=== PATIENT | female | born 1945 | race African-American/Black ===

== ENCOUNTER → 2016-09-14 | Outpatient (CLI) | payer OTHER ==
[2016-08-07 03:45] VITALS: BP 198/73
[~2016-09-14] MED LIST: ALPR0.254; ALPR0.254 PO; AMLO5TAB2 PO; AMOX1TAB10 PO; BENA1TAB7 PO; CONTRAST GIVEN MC PRN; DILT120C97 PO; IOHEXOL 240 MG/ML 50ML VIAL. PO ONE; IOHEXOL 300 MG/ML 75 ML VIAL IV ONE; PERP1TAB7; PRED20TA PO; SERT50TA PO; SERT50TA8 PO; SIMV10TA3 PO
[2016-09-14 09:52] LABS: GFR 65.8
--- NOTE | 2016-09-14 11:57 | RAD ---
Indication frequent urinary tract infections. Right-sided flank pain. Axial images through the abdomen and pelvis were obtained. Both IV and oral contrast were administered. Approximately 75 cc of Omnipaque 300 was administered intravenously. Note is made of a previous examination 03/16/2005. An acute finding in either lung base is not seen. There is a suggested small nodule, along the fissure, at the right lung base just above the diaphragm, image 6 series 2 measuring approximately 3 to 4 mm. It is similar to an examination 04/10/2005. The liver and spleen appear unremarkable. The gallbladder appears grossly normal. No pancreatic abnormality is seen. There are no adrenal masses. There is an extrarenal pelvis on the right similar to the previous exam. A renal mass is not seen. A focal mass inflammatory process or acute finding in the abdomen is not seen. In the pelvis no focal mass or inflammatory process is seen. There are some degenerative changes in the lower lumbar spine. IMPRESSION: No acute finding seen in the abdomen or pelvis. PQRS Compliance Statement: One or more of the following individualized dose reduction techniques were utilized for this examination: 1. Automated exposure control 2. Adjustment of the mA and/or kV according to patient size 3. Use of iterative reconstruction technique
== END | disposition home or self-care (01) ==
LOC: CT 08:33
PROVIDERS: ATTEND Internal Medicine
DX: R10.9 Unspecified abdominal pain (principal); I10 Essential (primary) hypertension; N39.0 Urinary tract infection, site not specified
CPT/HCPCS: 36415; 74177; 82565; 84520; Q9966; Q9967

== ENCOUNTER 2016-09-24 10:11 | Day surgery (SDC) | payer OTHER ==
[~2016-09-24 10:11] MED LIST changes: -CONTRAST GIVEN MC PRN; +FENTANYL PF 100 MCG/2 ML VIAL. IV PRN; +HYDROMORPHONE 2 MG/ML VIAL. IV PRN; -IOHEXOL 240 MG/ML 50ML VIAL. PO ONE; -IOHEXOL 300 MG/ML 75 ML VIAL IV ONE; +IV RINGERS,LACTATED 1000ML 1,000 ML IV SCH; +LIDOCAINE 1% 1 ML SYRINGE. ID PRN; +METO-269 PO; +MORPHINE SULFATE 2 MG/ML DISP.SYRIN. IV PRN; +ONDANSETRON PF 4 MG/2 ML VIAL. IV PRN; +PERP1TAB7 PO; +PROCHLORPERAZINE 10 MG/2 ML VIAL. IV PRN; +TRIA1TAB3 PO
[2016-09-24] MEDS ORDERED: BUPIVAC MPF-EPI 0.5%-1:200000 30 ML VIAL. ONE (10:40)
[2016-09-24] MEDS ORDERED: DEXAMETHASONE SOD PHOS 20 MG/5 ML VIAL. ONE (11:14)
[2016-09-24] MEDS ORDERED: LIDOCAINE 2% PF Vial for OR 5 ML VIAL. ONE (11:14)
[2016-09-24] MEDS ORDERED: PROPOFOL 20 ML IV ONE ×2 (11:14→12:04)
[2016-09-24] MEDS ORDERED: SEVOFLURANE 31 TO 60 MINUTES. IH ONE ×2 (11:14→12:12)
[2016-09-24] MEDS ORDERED: ONDANSETRON PF 4 MG/2 ML VIAL. ONE (11:14)
[2016-09-24] MEDS ORDERED: PHENYLEPHRINE in 0.9% NACL PF 1 MG/10 ML DISP.SYRIN. IV ONE (12:04)
[2016-09-24] MEDS ORDERED: HYDROCODONE/APAP 5/325MG TABLET. PO ONE ×2 (12:30→13:15)
[2016-09-24] MEDS ORDERED: HYDR-971 PO (13:16)
--- NOTE | 2016-09-24 13:23 | PDOC ---
BRIEF OPERATIVE NOTE Pre-Op Diagnosis umb mass excision of mass gen ivf 300 ebl 5 bhanu well to rr stable TRISTIAN MAY MD Sep 24, 2016 13:22
[2016-09-24 14:43] VITALS: BP 134/72
--- NOTE | 2016-09-24 19:11 | OP ---
DATE OF SURGERY: 09/24/2016 PREOPERATIVE DIAGNOSIS: Umbilical mass. POSTOPERATIVE DIAGNOSIS: A 3.5 cm umbilical mass. PROCEDURE: Excision of 3.5 cm umbilical mass. SURGEON: Tristian May MD ANESTHESIA: General. ESTIMATED BLOOD LOSS: 5. IV FLUIDS: 300. INDICATIONS: The patient is a 71-year-old female who has got a black umbilical mass that she is here for excision. PROCEDURE IN DETAIL: After informed consent was obtained, the patient was taken to the operating room and placed in the supine position. After adequate induction of general anesthesia, she was prepped and draped in usual sterile fashion. The mass was elevated. It was attached widely at the base of the umbilicus and therefore, an infraumbilical skin incision was made similar to the approach used for an umbilical hernia repair. The subcutaneous tissues divided with cautery. The umbilical stalk was encircled with cautery. The dissection was then such that the umbilicus was from the fascia. In doing so, this mass was filled with foul smelling dark, thick richardson to black drainage and the bottom of the mass had completely encompassed the base of the umbilicus and the base of the umbilicus had to be excised in order to excise the mass. The defect in the umbilicus was then closed with 4-0 Monocryl at the skin level. At the fascia where the umbilical stalk had attached, there was a 2-4 mm opening in the fascia. This opening was closed with 2 interrupted 0 Prolene sutures. The dermis of the umbilicus was then tacked back to the fascia with 3-0 Vicryl and the skin was closed with 4-0 Monocryl in subcuticular fashion. Sterile dressings were placed, local had been injected. She tolerated the procedure well. There were no apparent complications. She was then transferred in stable condition to the recovery room. TRISTIAN MAY MD DR: SALUD/milka JOB#: [id number] / [id number] GREY Eid MD, FADI MD MTDD
--- NOTE | 2016-09-26 15:10 | PATHOLOGY ---
PATHOLOGY REPORT * * * * * * * * FINAL DIAGNOSIS: Skin, umbilical mass: - Benign squamous keratosis with marked hyperkeratosis and cutaneous horn. COMMENT: There is no evidence of malignancy. (TRINIM:; d/t: 09/25/16) REPORT ELECTRONICALLY SIGNED BY: Sukhjinder Whalen M.D. DATE/TIME: 09/26/2016 15:09 * * * * * * * * GROSS PATHOLOGY: The specimen is received in formalin, labeled "Valentin Davis and umbilical mass." Received is a 2.2 x 0.7 x 0.9 cm irregular excision of skin.The epidermal surface is caballero-brown, wrinkled, and granular. Sectioning reveals a white-caballero and fibrous cut surface. Also received is a 3.3 x 1.5 x 1.4 cm caballero-brown, irregular, and friable soft tissue. Sectioning reveals a dark brown and firm cut surface. Endoscope Technician sections are submitted in cassette A1. (TTL; 09/24/2016) After initial microscopic evaluation, additional sections are submitted in cassettes A2-A3. (TTL; 09/25/2016) INITIAL CPT CODE(S): A; 64425 Professional services performed [place] [address] Technical services performed by [facility] at [address] [place] [address] [address]. SPECIMEN(S) RECEIVED: A.Umbilical mass CLINICAL HISTORY: Umbilical mass PATIENT: VALENTIN DAVIS /AGE: 1 1945 (Age: 71) PATIENT #: [id number] ALT CASE #: SPECIMEN COLLECTION DATE: 09/24/2016 SPECIMEN RECEIVED DATE: 09/24/2016 [facility] - [address] [place] [address] - PHONE: [phone] * * * END OF REPORT * * *
== END 2016-09-24 14:46 | disposition home or self-care (01) ==
LOC: SURG 10:11
PROVIDERS: ATTEND Surgery
DX: L57.0 Actinic keratosis (principal); E78.00 Pure hypercholesterolemia, unspecified; I10 Essential (primary) hypertension; J45.909 Unspecified asthma, uncomplicated; E66.9 Obesity, unspecified; Z90.710 Acquired absence of both cervix and uterus
CPT/HCPCS: 11404; 12032; A4215; J1100; J1956; J2370; J2405; J2704; J3490; 88305

== ENCOUNTER → 2016-10-08 | Outpatient (CLI) | payer OTHER ==
[2016-09-24 14:43] VITALS: BP 134/72
[~2016-10-08] MED LIST changes: -FENTANYL PF 100 MCG/2 ML VIAL. IV PRN; +HYDR-971 PO; -HYDROMORPHONE 2 MG/ML VIAL. IV PRN; -IV RINGERS,LACTATED 1000ML 1,000 ML IV SCH; -LIDOCAINE 1% 1 ML SYRINGE. ID PRN; -MORPHINE SULFATE 2 MG/ML DISP.SYRIN. IV PRN; -ONDANSETRON PF 4 MG/2 ML VIAL. IV PRN; -PROCHLORPERAZINE 10 MG/2 ML VIAL. IV PRN
--- NOTE | 2016-10-08 08:56 | RAD ---
INDICATION: Abdominal pain. COMPARISON: 09/04/2016 TECHNIQUE: Grayscale and color ultrasound images obtained through the abdomen. FINDINGS: Aorta/IVC: Partially visualized without gross aneurysm. Pancreas: Visualized portions unremarkable. Liver: Echotexture within normal limits. Gallbladder: 6 x 4 mm nodular density along wall and additional 5 mm density along wall. Common Bile Duct: Not dilated. Right Kidney: No hydronephrosis. Left Kidney: No hydronephrosis. Spleen: Unremarkable. IMPRESSION: There are couple of nodular densities seen within the gallbladder measuring up to 6 mm. These could be secondary to polyps or adherent stone. Would obtain a follow-up ultrasound in 6-12 months to ensure no growth. No bile duct dilation or hydronephrosis
== END | disposition home or self-care (01) ==
LOC: US 07:45
PROVIDERS: ATTEND Internal Medicine
DX: R10.9 Unspecified abdominal pain (principal)
CPT/HCPCS: 76700

== ENCOUNTER 2016-12-05 23:03 | Inpatient (IN) | payer OTHER ==
[~2016-12-05] VITALS: Ht 154.9 cm; Wt 67.1 kg
[2016-12-05] MEDS ORDERED: methylPREDNISolone SOD SUCC PF 125 MG/2 ML VIAL. IV ONE (23:30)
[2016-12-05] MEDS ORDERED: FAMOTIDINE 20 MG/2 ML VIAL IVP ONE (23:30)
[2016-12-05] MEDS ORDERED: DIPHENHYDRAMINE 50 MG/ML VIAL. IV ONE (23:30)
[2016-12-05] MEDS ORDERED: IV NORMAL SALINE 1000ML BAG 1,000 ML IV SCH (23:30)
[2016-12-05 23:31] LABS: BASO # 0.1 x10^3/uL (0.0-0.2); BASO % 1 % (0-3); EOS % 4 % (0-3); HEMOGLOBIN 12.4 g/dL (12.0-15.5); LYMPH # 2.6 x10^3/uL (1.0-4.8); LYMPH % 28 % (24-48); MEAN CORPUSCULAR HEMOGLOBIN 29 pg (25-35); MEAN CORPUSCULAR HGB CONC 33 g/dL (31-37); MEAN CORPUSCULAR VOLUME 90 fL (79-100); MONO % 10 % (0-9); NEUT % 58 % (31-73); PLATELET COUNT 207 x10^3/uL (140-400); RED BLOOD COUNT 4.24 x10^6/uL (3.50-5.40); WHITE BLOOD COUNT 9.3 x10^3/uL (4.0-11.0)
--- NOTE | 2016-12-05 23:36 | PHYS DOC ---
Past Medical History Past Medical History: High Cholesterol Additional Past Medical Histor: HTN Insomnia palpations Past Surgical History: Hysterectomy Alcohol Use: None Drug Use: None Adult General Chief Complaint Chief Complaint: ALLERGIC REACTION HPI HPI Patient is a 71 year old female who presents with complaint of tongue swelling that started earlier this evening. Patient states symptoms came on suddenly. Patient is having swelling of the tongue and also is feeling tightness in her throat. Patient denies difficulty breathing or shortness of breath currently. Patient has had history of angioedema with unknown cause requiring hospitalization in March 2016. Patient states that her symptoms resolved with IV medications. Patient is not experiencing any fever or chest pain currently. Patient contacted her primary physician's office and was told to come to the emergency department for immediate evaluation. Review of Systems Review of Systems Constitutional: Denies fever or chills [] Eyes: Denies change in visual acuity, redness, or eye pain [] HENT: Tongue swelling, throat tightness [] Respiratory: Denies cough or shortness of breath [] Cardiovascular: Denies chest pain [] GI: Denies abdominal pain, nausea, vomiting, bloody stools or diarrhea [] : Denies dysuria or hematuria [] Musculoskeletal: Denies back pain or joint pain [] Integument: Denies rash or skin lesions [] Neurologic: Denies headache, focal weakness or sensory changes [] Current Medications Current Medications Current Medications Medications (Trade) Dose Ordered Sig/Jeyson Start Time Stop Time Status Last Admin Dose Admin Diphenhydramine HCl (Benadryl) 25 mg 1X ONCE 12/05/16 23:30 12/05/16 23:31 Famotidine 20 mg 20 mg 1X ONCE 12/05/16 23:30 12/05/16 23:31 Methylprednisolone Sodium Succinate (Solu-Medrol 125mg Vial) 125 mg 1X ONCE 12/05/16 23:30 12/05/16 23:31 Sodium Chloride (Iv Sodium Chloride 0.9% 1000ml Bag) 1,000 ml @ 1,000 mls/hr Q1H 12/05/16 23:30 12/06/16 00:29 Allergies Allergies Allergies Coded Allergies Type Severity Reaction Last Updated Verified benazepril Allergy Severe ANGIOEDEMA 09/24/16 Yes Penicillins Allergy Intermediate 09/24/16 Yes Physical Exam Physical Exam Constitutional: Alert, afebrile, no acute distress. [] HENT: Normocephalic, atraumatic, bilateral external ears normal, oropharynx moist, moderate tongue swelling present, no oral exudates, nose normal. [] Eyes: PERRLA, EOMI, conjunctiva normal, no discharge. [] Neck: Normal range of motion, no tenderness, supple, no stridor. [] Cardiovascular:Heart rate regular rhythm, no murmur [] Lungs & Thorax: Bilateral breath sounds clear to auscultation [] Abdomen: Bowel sounds normal, soft, no tenderness, no masses, no pulsatile masses. [] Skin: Warm, dry, no erythema, no rash. [] Back: No tenderness, no CVA tenderness. [] Extremities: No tenderness, no cyanosis, no clubbing, ROM intact, no edema. [] Neurologic: Alert and oriented X 3, normal motor function, normal sensory function, no focal deficits noted. [] Current Patient Data Vital Signs Vital Signs Date Time Temp Pulse Resp B/P Pulse Ox O2 Delivery O2 Flow Rate FiO2 12/05/16 23:06 98.7 91 16 134/74 97 Room Air 98.7 EKG EKG Interpreted by me: Heart rate 85, sinus rhythm, normal intervals, normal axis, no acute ST/T-wave abnormalities present [] Radiology/Procedures Radiology/Procedures Not performed [] Course & Med Decision Making Course & Med Decision Making Pertinent Labs and Imaging studies reviewed. (See chart for details) Patient started on IV Solu-Medrol, Pepcid, and Benadryl. Due to intraoral angioedema, the patient will require admission to the hospital under ICU care to ensure close monitoring of the patient's condition and rapid response any deterioration of her condition. I spoke with Dr. Campbell who accepted care patient in hospital. Dragon Disclaimer Dragon Disclaimer This electronic medical record was generated, in whole or in part, using a voice recognition dictation system. Departure Departure Impression: Primary Impression: Angioedema Disposition: ADMITTED INPATIENT Admitting Physician: Grey Campbell Condition: GUARDED Referrals: GREY CAMPBELL MD (PCP) Problem Qualifiers Primary Impression: Angioedema Encounter type: initial encounter Qualified Code: T78.3XXA - Angioneurotic edema, initial encounter NIK DAVIS MD Dec 05, 2016 23:36
[2016-12-05 23:40] LABS: CALCIUM 9.4 mg/dL (8.5-10.1); GFR 65.8; POTASSIUM 3.9 mmol/L (3.5-5.1)
[2016-12-05 23:46] LABS: ALBUMIN 3.8 g/dL (3.4-5.0); ALBUMIN/GLOBULIN RATIO 0.9 (1.0-1.7); TOTAL BILIRUBIN 0.2 mg/dL (0.2-1.0); TOTAL PROTEIN 8.1 g/dL (6.4-8.2)
[2016-12-06] VITALS (12 sets, daily range): BP systolic 91–144; BP diastolic 43–76
[2016-12-06] MEDS ORDERED: ONDANSETRON PF 4 MG/2 ML VIAL. IV PRN
[2016-12-06] MEDS ORDERED: DIPHENHYDRAMINE 50 MG/ML VIAL. IVP PRN
[2016-12-06] MEDS: IV NORMAL SALINE 1000ML BAG 1,000 ML IV SCH ×2 (01:59→09:48)
--- NOTE | 2016-12-06 05:57 | EKG ---
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
[2016-12-06] MEDS: methylPREDNISolone SOD SUCC PF 40 MG/ML VIAL. IV SCH ×2 (06:00→13:01)
[2016-12-06 07:09] LABS: CALCIUM 9.3 mg/dL (8.5-10.1); GFR 65.8
[2016-12-06] MEDS ORDERED: FAMOTIDINE 20 MG/2 ML VIAL IVP SCH (09:00)
--- NOTE | 2016-12-06 10:35 | PDOC ---
OBJECTIVE Vital Signs Vital Signs Date Time Temp Pulse Resp B/P Pulse Ox O2 Delivery O2 Flow Rate FiO2 12/06/16 10:17 85 16 117/62 97 Room Air 12/06/16 06:00 81 22 118/64 98 Room Air 12/06/16 05:00 77 18 95/43 96 Room Air 12/06/16 04:03 Room Air 12/06/16 04:00 98.0 68 16 109/50 95 Room Air 98.0 12/06/16 03:00 68 14 103/47 96 Room Air 12/06/16 02:17 Room Air 12/06/16 02:00 64 12 104/53 94 Room Air 12/06/16 01:50 74 15 131/76 98 Room Air 12/06/16 01:35 98.0 76 16 124/75 98 Room Air 98.0 12/06/16 01:04 77 131/80 98 Room Air 12/06/16 00:34 79 133/63 98 Room Air 12/06/16 00:04 83 143/67 98 Room Air 12/05/16 23:34 89 132/60 96 Room Air 12/05/16 23:06 98.7 91 16 134/74 97 Room Air 98.7 I & O Intake and Output 12/06/16 06:59 Intake Total 1000 ml Output Total 500 ml Balance 500 ml Intake IV Total 1000 ml Output Urine Total 500 ml ASSESSMENT/PLAN Assessment/Plan [id number] H&P dictated Problems: COMMENT Lab Laboratory Tests Test 12/05/16 23:20 12/06/16 06:25 White Blood Count 9.3x10^3/uL (4.0-11.0) Red Blood Count 4.24x10^6/uL (3.50-5.40) Hemoglobin 12.4g/dL (12.0-15.5) Hematocrit 38.0% (36.0-47.0) Mean Corpuscular Volume 90fL (79-100) Mean Corpuscular Hemoglobin 29pg (25-35) Mean Corpuscular Hemoglobin Concent 33g/dL (31-37) Red Cell Distribution Width 14.0% (11.5-14.5) Platelet Count 207x10^3/uL (140-400) Neutrophils (%) (Auto) 58% (31-73) Lymphocytes (%) (Auto) 28% (24-48) Monocytes (%) (Auto) 10% (0-9) Eosinophils (%) (Auto) 4% (0-3) Basophils (%) (Auto) 1% (0-3) Neutrophils # (Auto) 5.4x10^3uL (1.8-7.7) Lymphocytes # (Auto) 2.6x10^3/uL (1.0-4.8) Monocytes # (Auto) 0.9x10^3/uL (0.0-1.1) Eosinophils # (Auto) 0.4x10^3/uL (0.0-0.7) Basophils # (Auto) 0.1x10^3/uL (0.0-0.2) Sodium Level 140mmol/L (136-145) 140mmol/L (136-145) Potassium Level 3.9mmol/L (3.5-5.1) 4.0mmol/L (3.5-5.1) Chloride Level 102mmol/L (98-107) 104mmol/L (98-107) Carbon Dioxide Level 30mmol/L (21-32) 26mmol/L (21-32) Anion Gap 8 (6-14) 10 (6-14) Blood Urea Nitrogen 18mg/dL (7-20) 15mg/dL (7-20) Creatinine 1.0mg/dL (0.6-1.0) 1.0mg/dL (0.6-1.0) Estimated GFR (Cockcroft-Gault) 65.8 65.8 BUN/Creatinine Ratio 18 (6-20) Glucose Level 111mg/dL (70-99) 147mg/dL (70-99) Calcium Level 9.4mg/dL (8.5-10.1) 9.3mg/dL (8.5-10.1) Total Bilirubin 0.2mg/dL (0.2-1.0) Aspartate Amino Transf (AST/SGOT) 24U/L (15-37) Alanine Aminotransferase (ALT/SGPT) 24U/L (14-59) Alkaline Phosphatase 107U/L (46-116) Total Protein 8.1g/dL (6.4-8.2) Albumin 3.8g/dL (3.4-5.0) Albumin/Globulin Ratio 0.9 (1.0-1.7) GREY CAMPBELL MD Dec 06, 2016 10:35
[2016-12-06] MEDS ORDERED: METH4TAB2 PO (14:04)
[2016-12-06] MEDS ORDERED: FAMO-63 PO (14:04)
[2016-12-06] MEDS ORDERED: LORA10TA68 PO (14:04)
--- NOTE | 2016-12-06 14:27 | PDOC3 ---
Discharge Summary* Date of Admission: Dec 05, 2016 Date of Discharge: Dec 06, 2016 Admitting Diagnosis Problems Medical Problems: (1) Angioedema Status: Acute Final Diagnosis 1-Angioedema 2-HTN Problems Medical Problems: (1) Angioedema Status: Acute Procedures oximetry and cardiac monitoring Brief Hospital Course Ms. Davis is a 71 old Female who presented with angioedema, recurrent, treated with steroid, H1 and H2 blockers, symptoms resolved and improved, Disposition/Orders: D/C to Home CONDITION AT DISCHARGE: Improved, Stable Diet: Cardiac Scheduled Famotidine (Pepcid) 20 MG PO BID Loratadine (Claritin) 1 TAB PO DAILY Methylprednisolone (Medrol) 1 PKG PO UD Metoprolol Succinate (Toprol Xl) 1 TAB PO DAILY (Reported) Perphenazine/Amitriptyline Hcl (Perphen-Amitrip 4 Mg-25 Mg Tab) 1 EACH PO QHS ( Reported) Discontinued Medications Triamterene/Hydrochlorothiazid (Triamterene-Hctz 37.5-25 Mg Tb) 1 TAB PO DAILY ( Reported) FOLLOW UP APPOINTMENT: to have C1 esterase inhibitor out pt if not done before f/u office 1 week Time Spent Total time spent with patient [] minutes for coordination of care, counseling, and education. GREY CAMPBELL MD Dec 06, 2016 14:27
--- NOTE | 2016-12-06 15:17 | HP ---
ADMIT DATE: 12/05/2016 LOCATION: Room# ICU 112. HISTORY OF PRESENT ILLNESS: The patient is a 71-year-old lady, who is known to have a previous history of angioedema, initially was thought to be due to JUDI inhibitors. She has not been on JUDI inhibitors for a long time, presented to the Emergency Room with a sudden onset of increased swelling in the tongue and that was getting worse progressively till the time she presented to the Emergency Room. She has a swelling in the tongue and feeling tightness in her throat. She denies difficulty breathing or shortness of breath. She denies rash. Her last hospitalization for angioedema was in 03/2016. PAST MEDICAL HISTORY: Significant for hypertension, hyperlipidemia, asthma, appendectomy, obesity, ovarian cancer, hysterectomy, and angioedema. FAMILY HISTORY: Positive for colon cancer and diabetes. REVIEW OF SYSTEMS: CONSTITUTIONAL: Denies fever, chills, or weight loss. EYES: Denies visual changes. HEENT: She does have some swelling and tightness in the throat. RESPIRATORY: Denies cough. Denies shortness of breath or wheezing. CARDIOVASCULAR: Denies chest pain. GASTROINTESTINAL: Denies abdominal pain, nausea, vomiting, diarrhea, or constipation. GENITOURINARY: She does have stress incontinence, but denies dysuria or hematuria. MUSCULOSKELETAL: She does have mild baseline osteoarthritis. NEUROLOGIC: She denies headache or focal weakness and/or numbness. PHYSICAL EXAMINATION: GENERAL: She is alert and oriented, pleasant. HEENT: Tympanic membranes clear. Pharynx clear. Her tongue is swollen and increased in size, but her tonsils are not enlarged and her upper airway is not closed up. Eyes: Pupils reactive to light and accommodation. NECK: Supple. HEART: Regular rate and rhythm. LUNGS: Fairly clear to auscultation. No wheezes. ABDOMEN: Soft, nontender, no organomegaly, no masses, no bruits, no ascites. EXTREMITIES: No edema, clubbing, or cyanosis. NEUROLOGICAL: Alert and oriented. Does not have any neurological deficits. The patient was evaluated in the Emergency Room and was diagnosed with recurrent angioedema. IMPRESSION: 1. Angioedema. The patient is admitted to ICU, started on steroids, antihistamine, H1 blockers. She will be monitored. 2. Hypertension. GREY CAMPBELL MD DR: Clive JOB#: [id number] / [id number]
== END 2016-12-06 14:44 | disposition home or self-care (01) | DRG 916 ==
LOC: ER 23:03 → 1 WEST ICU 23:16
PROVIDERS: ADMIT Internal Medicine; ATTEND Internal Medicine
DX: T78.3XXA Angioneurotic edema, initial encounter (principal); E78.00 Pure hypercholesterolemia, unspecified; E78.5 Hyperlipidemia, unspecified; I10 Essential (primary) hypertension; J45.909 Unspecified asthma, uncomplicated; Z80.0 Family history of malignant neoplasm of digestive organs; Z83.3 Family history of diabetes mellitus; Z85.43 Personal history of malignant neoplasm of ovary; Z90.710 Acquired absence of both cervix and uterus
CPT/HCPCS: 36415; 80048; 80053; 85027; 87641; 93005; 96361; 96374; 96375; J1200; J2920; J2930; J7030; S0028; 99285-25

== ENCOUNTER 2017-02-02 16:00 | Observation (INO) | payer OTHER ==
[~2017-02-02] VITALS: Ht 154.9 cm; Wt 68.7 kg
[~2017-02-02 16:00] MED LIST changes: +DILT120C80 PO; -DILT120C97 PO; +FAMO-63 PO; +LORA10TA68 PO; +METH4TAB2 PO
[2017-02-02 17:04] LABS: BASO % 1 % (0-3); EOS % 4 % (0-3); HEMATOCRIT 36.4 % (36.0-47.0); HEMOGLOBIN 11.9 g/dL (12.0-15.5); LYMPH # 2.7 x10^3/uL (1.0-4.8); LYMPH % 32 % (24-48); MEAN CORPUSCULAR HEMOGLOBIN 29 pg (25-35); MEAN CORPUSCULAR HGB CONC 33 g/dL (31-37); MEAN CORPUSCULAR VOLUME 90 fL (79-100); MONO % 8 % (0-9); NEUT % 55 % (31-73); PLATELET COUNT 214 x10^3/uL (140-400); RED BLOOD COUNT 4.05 x10^6/uL (3.50-5.40); WHITE BLOOD COUNT 8.4 x10^3/uL (4.0-11.0)
[2017-02-02 17:12] LABS: CALCIUM 9.9 mg/dL (8.5-10.1); CREATININE 1.1 mg/dL (0.6-1.0); GFR 58.9; POTASSIUM 3.3 mmol/L (3.5-5.1)
[2017-02-02 17:13] LABS: MAGNESIUM 1.7 mg/dL (1.8-2.4)
[2017-02-02] MEDS ORDERED: ASPIRIN 325 MG TABLET PO ONE (17:15)
[2017-02-02] MEDS ORDERED: ONDANSETRON PF 4 MG/2 ML VIAL. IV ONE (17:15)
--- NOTE | 2017-02-02 17:54 | PHYS DOC ---
Past Medical History Past Medical History: High Cholesterol, Hypertension Additional Past Medical Histor: Insomnia, palpations Past Surgical History: Hysterectomy Alcohol Use: None Drug Use: None Adult General Chief Complaint Chief Complaint: Palpitations HPI HPI Patient is a 71 year old female who presents for left sided chest pain radiating to left shoulder and jaw associated with fatigue and nausea and palpitations. Started around 1300 today at rest and has been constant until arrival here. Currently has nausea and fatigue without the other symptoms. She denies cough, dyspnea, fever or chills, vomiting, abdominal pain, diarrhea, dysuria, back pain, numbness, tingling, weakness. Review of Systems Review of Systems Constitutional: Denies fever or chills [] Eyes: Denies change in visual acuity, redness, or eye pain [] HENT: Denies nasal congestion or sore throat [] Respiratory: Denies cough or shortness of breath [] Cardiovascular: No additional information not addressed in HPI [] GI: Denies abdominal pain, vomiting, bloody stools or diarrhea [] : Denies dysuria or hematuria [] Musculoskeletal: Denies back pain or joint pain [] Integument: Denies rash or skin lesions [] Neurologic: Denies headache, focal weakness or sensory changes [] Endocrine: Denies polyuria or polydipsia [] Current Medications Current Medications Current Medications Medications (Trade) Dose Ordered Sig/Jeyson Start Time Stop Time Status Last Admin Dose Admin Aspirin (Edilberto Aspirin) 325 mg 1X ONCE 02/02/17 17:15 02/02/17 17:16 DC 02/02/17 17:14 325 MG Ondansetron HCl (Zofran) 4 mg 1X ONCE 02/02/17 17:15 02/02/17 17:16 DC 02/02/17 17:14 4 MG Allergies Allergies Allergies Coded Allergies Type Severity Reaction Last Updated Verified benazepril Allergy Severe ANGIOEDEMA 09/24/16 Yes Penicillins Allergy Intermediate 09/24/16 Yes Physical Exam Physical Exam Constitutional: Well developed, well nourished, no acute distress, non-toxic appearance. [] HENT: Normocephalic, atraumatic, bilateral external ears normal, oropharynx moist, nose normal. [] Eyes: PERRLA, EOMI. [] Neck: Normal range of motion, supple. [] Cardiovascular:Heart rate regular rhythm [] Lungs & Thorax: Bilateral breath sounds clear to auscultation [] Abdomen: Bowel sounds normal, soft, no tenderness. [] Skin: Warm, dry, no erythema, no rash. [] Back: Normal ROM. [] Extremities: No tenderness, ROM intact, no edema. [] Neurologic: Alert and oriented X 3, normal motor function, normal sensory function, no focal deficits noted. [] Psychologic: Affect normal, judgement normal, mood normal. [] Current Patient Data Vital Signs Vital Signs Date Time Temp Pulse Resp B/P (MAP) Pulse Ox O2 Delivery O2 Flow Rate FiO2 02/02/17 16:20 98.6 110 23 169/79 (109) 95 Room Air 98.6 Lab Values Laboratory Tests Test 02/02/17 16:36 White Blood Count 8.4 x10^3/uL (4.0-11.0) Red Blood Count 4.05 x10^6/uL (3.50-5.40) Hemoglobin 11.9 g/dL (12.0-15.5) L Hematocrit 36.4 % (36.0-47.0) Mean Corpuscular Volume 90 fL (79-100) Mean Corpuscular Hemoglobin 29 pg (25-35) Mean Corpuscular Hemoglobin Concent 33 g/dL (31-37) Red Cell Distribution Width 14.0 % (11.5-14.5) Platelet Count 214 x10^3/uL (140-400) Neutrophils (%) (Auto) 55 % (31-73) Lymphocytes (%) (Auto) 32 % (24-48) Monocytes (%) (Auto) 8 % (0-9) Eosinophils (%) (Auto) 4 % (0-3) H Basophils (%) (Auto) 1 % (0-3) Neutrophils # (Auto) 4.6 x10^3uL (1.8-7.7) Lymphocytes # (Auto) 2.7 x10^3/uL (1.0-4.8) Monocytes # (Auto) 0.7 x10^3/uL (0.0-1.1) Eosinophils # (Auto) 0.3 x10^3/uL (0.0-0.7) Basophils # (Auto) 0.0 x10^3/uL (0.0-0.2) Sodium Level 139 mmol/L (136-145) Potassium Level 3.3 mmol/L (3.5-5.1) L Chloride Level 101 mmol/L (98-107) Carbon Dioxide Level 30 mmol/L (21-32) Anion Gap 8 (6-14) Blood Urea Nitrogen 15 mg/dL (7-20) Creatinine 1.1 mg/dL (0.6-1.0) H Estimated GFR (Cockcroft-Gault) 58.9 Glucose Level 141 mg/dL (70-99) H Calcium Level 9.9 mg/dL (8.5-10.1) Magnesium Level 1.7 mg/dL (1.8-2.4) L Troponin I Quantitative < 0.017 ng/mL (0.000-0.055) JG-Grj-U-Type Natriuretic Peptide 29 pg/mL (0-124) Laboratory Tests 02/02/17 16:36 Laboratory Tests 02/02/17 16:36 EKG EKG EKG as interpreted by me as sinus tachycardia, rate 111, no ST-T changes, CA 92 , QTC 468, no delta wave, no ectopy Radiology/Procedures Radiology/Procedures Chest xray as interpreted by me with no acute cardiopulmonary disease process Course & Med Decision Making Course & Med Decision Making Pertinent Labs and Imaging studies reviewed. (See chart for details) Workup is unremarkable. HEART score is 5. Will admit for ACS rule out. She remains without chest pain. Discussed case with Dr. Hernandez, agronomy technician for Dr. Campbell, who will admit. Cardiology consult placed. Dragon Disclaimer Dragon Disclaimer This electronic medical record was generated, in whole or in part, using a voice recognition dictation system. Departure Departure Impression: Primary Impression: Chest pain Disposition: ADMITTED INPATIENT Condition: STABLE Referrals: GREY CAMPBELL MD (PCP) Problem Qualifiers Primary Impression: Chest pain Chest pain type: unspecified Qualified Codes: R07.9 - Chest pain, unspecified Gisell HART MD Feb 02, 2017 17:54
[2017-02-02] MEDS ORDERED: ACETAMINOPHEN 325 MG TABLET. PO PRN (18:00)
[2017-02-02] MEDS ORDERED: MAGNESIUM SULFATE 1GM 100 ML IV ONE (18:00)
[2017-02-02] MEDS ORDERED: fentaNYL PF VIAL 100 MCG/2 ML VIAL IV PRN (18:00)
[2017-02-02] MEDS ORDERED: ONDANSETRON PF 4 MG/2 ML VIAL. IV PRN (18:00)
[2017-02-02] MEDS ORDERED: NITROGLYCERIN SUBLINGUAL 0.4 MG BOTTLE OF 25. SL PRN (18:00)
--- NOTE | 2017-02-02 18:23 | ACF ---
Admission Forms Criteria CHEST PAIN Clinical Indications for Admission to Inpatient Care (Place 'X' for any and all applicable criteria): Admission is indicated for chest pain and ANY ONE of the following(1)(2)(3)(4)(5 ): [X]I. Angina with acute coronary syndrome (Also use Myocardial Infarction or Angina guideline) [ ]II. Hemodynamic instability [ ]III. Angina needing acute intervention as indicated by ALL of the following( 11)(12): [ ]a) Unstable angina is present as indicated by angina that is ANY ONE of the following: [ ]i) New onset [ ]ii) Nocturnal [ ]iii) Prolonged at rest [ ]iv) Progressive [ ]b) Angina warrants acute intervention as indicated by ANY ONE of the following: [ ]i) Recurrent angina (e.g, not responding as previously to treatment) [ ]ii) Angina at rest or with low-level activities despite initial medical therapy [ ]iii) New or presumably new ST-segment depression on ECG [ ]iv) Signs or symptoms of heart failure (eg, dyspnea, pulmonary edema) [ ]v) New or worsening mitral regurgitation [ ]vi) Hemodynamic instability [ ]vii) Dangerous arrhythmia (eg, sustained ventricular tachycardia) [ ]viii) History of percutaneous coronary intervention within 6 months [ ]ix) History of coronary artery bypass graft surgery [ ]x) SAUL risk score of 2 or greater[A] [ ]xi) History of Diabetes(14) [ ]xii) High-risk cardiac ischemia findings on noninvasive testing (e.g, echocardiogram, treadmill testing, nuclear scan) [ ]xiii) Chronic renal insufficiency (ie, estimated GFR less than 60 mL/min/1.732m) [ ]xiv) Left ventricular ejection fraction less than 40% [ ]IV. Evidence of ID (eg, cardiac biomarkers positive, ST-segment elevation on ECG) also use Myocardial Infarction Criteria Form. [ ]V. Pulmonary edema [ ]. Respiratory distress [ ]VII. Chest pain indicative of serious diagnosis other than coronary artery disease (eg, aortic dissection) [ ]VIII. Contraindications and/or Inappropriate clinical situations for Observational Care in patients with Chest Pain, when ANY ONE of the following is required: [ ]a) Patient with risk factor for pulmonary embolism, acute coronary syndrome and myocardial infarction (18) [ ]b) Patient with Pulmonary embolism require an average LOS of 4.3 days, therefore emergency department observation management is inappropriate 18,23 [ ]c) Painful condition/s in the elderly, have the highest rate of recidivism after emergency department observation management (10.8%) 20,21,22 [ ]d) Elevated cardiac biomarker requires intensive and exhaustive care (19) [X]IX. General contraindications and/or Inappropriate clinical situations for Observational Care in patients with Chest Pain, when ANY ONE of the following is required: [X]a) Prediction of prolongation of LOS based on ANY ONE of the following may be considered as a contraindication for observational care 2, 3, 4, 5, 6, 7, 8, 9, 10, 11 [X]i) Age > 65 yrs. [ ]ii) Patient arriving by ambulance [ ]iii) Patient with high acuity [ ]iv) Patient requiring vital sign monitoring [ ]v) Patient on IV medication [ ]b) Systolic blood pressures 180mmHg 3,12 [ ]c) Patient with altered mental status including delirium and other alteration of consciousness, (3) [ ]d) Patient whose discharge disposition will be to a halfway home or rehabilitation home should not be managed in Emergency Department Observation Unit. CMS rule requires 3 days hospital stay before such placement. 3,13 [ ]e) Patient with failure to thrive due to broad array of etiologies 3,16,17 [ ]f) Inability to ambulate 3,14 Extended stay beyond goal length of stay may be needed for (1)(28): [ ]a) Specific condition diagnosed after evaluation (eg, pulmonary embolism, aortic dissection) [ ]b) Unstable angina [ ]c) Continued suspicion of acute coronary syndrome with inability to complete needed cardiac evaluation (eg, patient clinically unable to undergo stress testing) [ ]d) Myocardial infarction (Contents from ANGINA and CHEST PAIN clinical indications for admission to inpatient care have been integrated in this form) The original [employer] content created by [employer] has been revised. The portions of the content which have been revised are identified through the use of italic text or in bold, and [email or web address] has neither reviewed nor approved the modified material. All other unmodified content is copyright [employer]. Please see references footnoted in the original [email or web address] edition 2016 Admission Criteria Met?: Yes DAYANARA WYMAN Feb 02, 2017 18:23
[2017-02-02 20:05] VITALS: BP 140/76
[2017-02-02] MEDS: AMITRIPTYLINE HCL 25 MG TABLET. PO SCH (21:19)
[2017-02-02] MEDS: FAMOTIDINE 20 MG TABLET. PO SCH (21:19)
[2017-02-02] MEDS: PERPHENAZINE 2 MG TABLET PO SCH (21:20)
[2017-02-02 22:29] VITALS: BP 120/67
[2017-02-03 03:01] VITALS: BP 124/62
[2017-02-03 07:00] VITALS: BP 126/66
--- NOTE | 2017-02-03 08:34 | RAD ---
Indication chest pain. PA and lateral views of the chest were obtained and are compared to an examination 12/08/2015. The heart and pulmonary vessels appear normal. The lungs are clear. A significant change compared to the previous exam is not seen. IMPRESSION: No acute or focal process. No significant change
[2017-02-03] MEDS ORDERED: POTASSIUM CHLORIDE 20 MEQ TABLET.ER. PO ONE (08:45)
[2017-02-03] MEDS: FAMOTIDINE 20 MG TABLET. PO SCH ×2 (08:51→20:56)
[2017-02-03] MEDS: METOPROLOL SUCC 24HR ER 50 MG TAB.ER.24H. PO SCH (08:52)
[2017-02-03] MEDS: CETIRIZINE HCL 10 MG TABLET. PO SCH (08:52)
[2017-02-03 11:00] VITALS: BP 115/64
--- NOTE | 2017-02-03 12:03 | PDOC ---
Provider Note Provider Note [id number] TERESITA TOLEDO MD Feb 03, 2017 12:03
--- NOTE | 2017-02-03 12:28 | EKG ---
[facility] [address] [place] [address] Test Date: 2017-02-02 Test Time: 16:24:43 Pat Name: VALENTIN LUTZ Department: Room: 201 1 Gender: F Pre Press Manager: : 1945 Requested By: Gisell HART Order Number: [id number] Reading MD: Gin Gonzalez Measurements Intervals Hope Rate: 111 P: -141 DC: 92 QRS: 19 QRSD: 86 T: 58 QT: 342 QTc: 468 Interpretive Statements SINUS TACHYCARDIA OTHERWISE NORMAL ECG Electronically Signed On 02-03-2017 21:20:17 CDT by Gin Gonzalez
--- NOTE | 2017-02-03 12:35 | HP ---
ADMIT DATE: 02/02/2017 CHIEF COMPLAINT: Fast heartbeat and chest pain. HISTORY OF PRESENT ILLNESS: A 71-year-old black female with a history of mild hypertension and recurrent angioedema, but no history of cardiovascular disease was at home doing normal minimal activity and started noticing a fast heartbeat and some aching discomfort in her left upper chest, shoulder and into the arm. There was mild nausea. No sweating, severe pain, emesis or notable shortness of breath. The symptoms persisted for more than an hour and she came to the ER and examination was unremarkable with normal EKG and normal cardiac enzymes. Potassium and magnesium were minimally low and both were given as replacements and she is feeling better since then. About one year ago, she was admitted for chest pain and had a negative MPI evaluation and has no history of heart disease to this point. PAST MEDICAL HISTORY: Medications taken for idiopathic urticaria and angioedema. MEDICATIONS: She takes metoprolol daily for blood pressure and she did take ____ on the day of admission. ALLERGIES: LISTED TO PENICILLIN AND BENAZEPRIL AT PRESENT. PAST SURGICAL HISTORY: She has had a total abdominal hysterectomy as her major surgery. SOCIAL HISTORY: , nonsmoker, nondrinker, physically active, not employed. FAMILY HISTORY: Unremarkable. REVIEW OF SYSTEMS: No other specific complaints at this time. OBJECTIVE: ENT: All within normal limits. No masses. Pharynx is clear. NECK: No carotid bruits, thyroid enlargement or masses are noted. LUNGS: Clear, without tachypnea. CARDIOVASCULAR: Regular rate. No irregular beat, murmur or tachycardia, is in sinus rhythm on the monitor. ABDOMEN: Soft, benign, nontender. No masses, megaly or nodes. EXTREMITIES: Nailbeds, pulses in lower extremities unremarkable. No edema. NEUROLOGIC: Physiologic with mild speech impediment, otherwise nonfocal and oriented x 4. ASSESSMENT: Tachycardia and chest pain, etiology unclear at this time. Seems to be low risk for ischemic coronary artery disease. PLAN: Check TSH. Cardiac consultation. TERESITA TOLEDO MD DR: KAI/milka JOB#: [id number] / [id number]
--- NOTE | 2017-02-03 14:36 | PDOC2 ---
CONSULT Date of Consult Date of Consult DATE: 02/03/17 TIME: 14:32 Reason for Consult Reason for Consult: chest pain Referring Physician Referring Physician: Dr. Hernandez Identification/Chief Complaint Chief Complaint Chest pain Source Source: Patient History of Present Illness Reason for Visit: The patient is a 71-year-old female with a history of mild hypertension and hyperlipidemia. She presented to the emergency room with episodes of reported chest discomfort associated with nausea. This had been present for one to 2 days and a periodic basis prior to admission. Her EKG showed a sinus tachycardia with no acute ischemic changes. Initial troponins have been normal. She was monitored overnight and feels much better today. Her chest discomfort has resolved. Past Medical History Cardiovascular: HTN Pulmonary: Asthma CENTRAL NERVOUS SYSTEM: Other GI: No pertinent hx Heme/Onc: Cancer Hepatobiliary: No pertinent hx Psych: No pertinent hx Musculoskeletal: Osteoarthritis Rheumatologic: No pertinent hx Infectious disease: No pertinent hx Renal/: No pertinent hx Endocrine: No pertinent hx Past Surgical History Past Surgical History: Tonsillectomy, Other Family History Family History: Heart Disease Social History ALCOHOL: none Drugs: None Lives: with Family Current Problem List Problem List Problems Medical Problems: (1) Chest pain Status: Acute Current Medications Current Medications Current Medications Aspirin (Edilberto Aspirin) 325 mg 1X ONCE PO Last administered on 02/02/17 17:14 ; Start 02/02/17 at 17:15; Stop 02/02/17 at 17:16; Status DC Ondansetron HCl (Zofran) 4 mg 1X ONCE IV Last administered on 02/02/17 17:14 ; Start 02/02/17 at 17:15; Stop 02/02/17 at 17:16; Status DC Magnesium Sulfate/ Dextrose 100 ml @ 100 mls/hr 1X ONCE IV Last administered on 02/02/17 18:10; Start 02/02/17 at 18:00; Stop 02/02/17 at 18:59; Status DC Ondansetron HCl (Zofran) 4 mg PRN Q8HRS PRN IV NAUSEA/VOMITING Last administered on 02/03/17 10:21; Start 02/02/17 at 18:00; Stop 02/03/17 at 17:59 Fentanyl Citrate (Fentanyl 2ml Vial) 25 mcg PRN Q2HR PRN IV PAIN Last administered on 02/02/17 18:09; Start 02/02/17 at 18:00; Stop 02/03/17 at 17:59 Acetaminophen (Tylenol) 650 mg PRN Q4HRS PRN PO FEVER Last administered on 02/03 10:21; Start 02/02/17 at 18:00; Stop 02/03/17 at 17:59 Nitroglycerin (Nitrostat) 0.4 mg PRN Q5MIN PRN SL CHEST PAIN; Start 02/02/17 at 18:00; Stop 02/03/17 at 17:59 Famotidine (Pepcid) 20 mg BID PO Last administered on 02/03/17 08:51; Start at 21:00 Cetirizine HCl (ZyrTEC) 10 mg DAILY PO Last administered on 02/03/17 08:52; Start 02/03/17 at 09:00 Metoprolol Succinate (Toprol Xl) 50 mg DAILY PO Last administered on 02/03/17 08:52; Start 02/03/17 at 09:00 Amitriptyline HCl (Elavil) 25 mg QHS PO Last administered on 02/02/17 21:19; Start 02/02/17 at 21:00 Perphenazine (Trilafon) 4 mg QHS PO Last administered on 02/02/17 21:20; Start 02/02/17 at 21:00 Potassium Chloride (Klor-Con) 20 meq 1X ONCE PO Last administered on 08:52; Start 02/03/17 at 08:45; Stop 02/03/17 at 08:46; Status DC Active Scripts Active Pepcid (Famotidine) 20 Mg Tablet 20 Mg PO BID Claritin (Loratadine) 10 Mg Tablet 1 Tab PO DAILY Reported Toprol Xl (Metoprolol Succinate) 50 Mg Tab.er.24h 1 Tab PO DAILY Perphen-Amitrip 4 Mg-25 Mg Tab (Perphenazine/Amitriptyline Hcl) 1 Each Tablet 1 Each PO QHS Allergies Allergies: Coded Allergies: benazepril (Verified Allergy, Severe, ANGIOEDEMA, 09/24/16) Penicillins (Verified Allergy, Intermediate, 09/24/16) ROS General: YES: Fatigue Cardiovascular: yes Chest Pain Gastrointestinal: Yes Nausea Physical Exam General: No acute distress HEENT: Atraumatic Lungs: Clear to auscultation Heart: Regular rate Abdomen: Normal bowel sounds Vitals VITALS Vital Signs Date Time Temp Pulse Resp B/P (MAP) Pulse Ox O2 Delivery O2 Flow Rate FiO2 02/03/17 11:00 97.8 71 18 115/64 (81) 95 Room Air 97.8 02/02/17 19:00 2.0 Labs Labs Laboratory Tests Test 02/02/17 16:36 02/02/17 22:22 02/03/17 05:00 White Blood Count 8.4 x10^3/uL (4.0-11.0) Red Blood Count 4.05 x10^6/uL (3.50-5.40) Hemoglobin 11.9 g/dL (12.0-15.5) Hematocrit 36.4 % (36.0-47.0) Mean Corpuscular Volume 90 fL (79-100) Mean Corpuscular Hemoglobin 29 pg (25-35) Mean Corpuscular Hemoglobin Concent 33 g/dL (31-37) Red Cell Distribution Width 14.0 % (11.5-14.5) Platelet Count 214 x10^3/uL (140-400) Neutrophils (%) (Auto) 55 % (31-73) Lymphocytes (%) (Auto) 32 % (24-48) Monocytes (%) (Auto) 8 % (0-9) Eosinophils (%) (Auto) 4 % (0-3) Basophils (%) (Auto) 1 % (0-3) Neutrophils # (Auto) 4.6 x10^3uL (1.8-7.7) Lymphocytes # (Auto) 2.7 x10^3/uL (1.0-4.8) Monocytes # (Auto) 0.7 x10^3/uL (0.0-1.1) Eosinophils # (Auto) 0.3 x10^3/uL (0.0-0.7) Basophils # (Auto) 0.0 x10^3/uL (0.0-0.2) Sodium Level 139 mmol/L (136-145) Potassium Level 3.3 mmol/L (3.5-5.1) Chloride Level 101 mmol/L (98-107) Carbon Dioxide Level 30 mmol/L (21-32) Anion Gap 8 (6-14) Blood Urea Nitrogen 15 mg/dL (7-20) Creatinine 1.1 mg/dL (0.6-1.0) Estimated GFR (Cockcroft-Gault) 58.9 Glucose Level 141 mg/dL (70-99) Calcium Level 9.9 mg/dL (8.5-10.1) Magnesium Level 1.7 mg/dL (1.8-2.4) Troponin I Quantitative < 0.017 ng/mL (0.000-0.055) < 0.017 ng/mL (0.000-0.055) < 0.017 ng/mL (0.000-0.055) AV-Jsx-I-Type Natriuretic Peptide 29 pg/mL (0-124) Thyroid Stimulating Hormone (TSH) 2.694 uIU/mL (0.358-3.74) Laboratory Tests Test 02/02/17 16:36 02/02/17 22:22 02/03/17 05:00 White Blood Count 8.4 x10^3/uL (4.0-11.0) Red Blood Count 4.05 x10^6/uL (3.50-5.40) Hemoglobin 11.9 g/dL (12.0-15.5) Hematocrit 36.4 % (36.0-47.0) Mean Corpuscular Volume 90 fL (79-100) Mean Corpuscular Hemoglobin 29 pg (25-35) Mean Corpuscular Hemoglobin Concent 33 g/dL (31-37) Red Cell Distribution Width 14.0 % (11.5-14.5) Platelet Count 214 x10^3/uL (140-400) Neutrophils (%) (Auto) 55 % (31-73) Lymphocytes (%) (Auto) 32 % (24-48) Monocytes (%) (Auto) 8 % (0-9) Eosinophils (%) (Auto) 4 % (0-3) Basophils (%) (Auto) 1 % (0-3) Neutrophils # (Auto) 4.6 x10^3uL (1.8-7.7) Lymphocytes # (Auto) 2.7 x10^3/uL (1.0-4.8) Monocytes # (Auto) 0.7 x10^3/uL (0.0-1.1) Eosinophils # (Auto) 0.3 x10^3/uL (0.0-0.7) Basophils # (Auto) 0.0 x10^3/uL (0.0-0.2) Sodium Level 139 mmol/L (136-145) Potassium Level 3.3 mmol/L (3.5-5.1) Chloride Level 101 mmol/L (98-107) Carbon Dioxide Level 30 mmol/L (21-32) Anion Gap 8 (6-14) Blood Urea Nitrogen 15 mg/dL (7-20) Creatinine 1.1 mg/dL (0.6-1.0) Estimated GFR (Cockcroft-Gault) 58.9 Glucose Level 141 mg/dL (70-99) Calcium Level 9.9 mg/dL (8.5-10.1) Magnesium Level 1.7 mg/dL (1.8-2.4) Troponin I Quantitative < 0.017 ng/mL (0.000-0.055) < 0.017 ng/mL (0.000-0.055) < 0.017 ng/mL (0.000-0.055) ZP-Com-O-Type Natriuretic Peptide 29 pg/mL (0-124) Thyroid Stimulating Hormone (TSH) 2.694 uIU/mL (0.358-3.74) Images Images Chest x-ray shows no acute changes Assessment/Plan Assessment/Plan 1. Chest discomfort. Pain has resolved. No acute EKG changes. Initial troponins are normal. The patient is feeling much better today. She does have risk factors of hypertension and hyperlipidemia. In this setting will proceed with admission with MPI testing in the morning. This was discussed with the patient. 2. Hypertension. Blood pressure is under reasonable control. Will adjust medications as stated. 3. Hyperlipidemia. We'll check a lipid panel in the morning. Thank you for allowing us to participate in the care of your patient. JERAMY VAZQUEZ MD Feb 03, 2017 14:36
[2017-02-03 15:00] VITALS: BP 119/63
[2017-02-03] MEDS ORDERED: ONDANSETRON PF 4 MG/2 ML VIAL. IV PRN (18:45)
[2017-02-03 19:10] VITALS: BP 126/67
[2017-02-03] MEDS: PERPHENAZINE 2 MG TABLET PO SCH (20:56)
[2017-02-03] MEDS: AMITRIPTYLINE HCL 25 MG TABLET. PO SCH (20:56)
[2017-02-03 23:27] VITALS: BP 103/64
[2017-02-04 03:06] VITALS: BP 102/63
[2017-02-04 05:09] LABS: CREATININE 1.1 mg/dL (0.6-1.0); GFR 58.9
[2017-02-04 05:32] LABS: CHOLESTEROL/HDL RATIO 4.7
[2017-02-04 07:45] VITALS: BP 109/63
[2017-02-04] MEDS ORDERED: REGADENOSON 0.4 MG/5 ML DISP.SYRIN. IV ONE (07:45)
--- NOTE | 2017-02-04 09:11 | PDOC ---
Provider Note Provider Note out re mpi, nomore pain, no tachy, labs/tsh ok- dc if mpi ok TERESITA TOLEDO MD Feb 04, 2017 09:11
[2017-02-04] MEDS: FAMOTIDINE 20 MG TABLET. PO SCH (09:32)
[2017-02-04] MEDS: METOPROLOL SUCC 24HR ER 50 MG TAB.ER.24H. PO SCH (09:33)
[2017-02-04] MEDS: CETIRIZINE HCL 10 MG TABLET. PO SCH (09:33)
[2017-02-04 11:06] VITALS: BP 117/56
--- NOTE | 2017-02-04 12:03 | RAD ---
APPROVED REPORT Test Type: Pharmacological Stress Nurse/Tech: Dania Elmore R.N. Test Indications: Chest Pain. Cardiac History: HTN Medications: SEE EMR Medical History: SEE EMR Resting ECG: SR Resting Heart Rate: 80 bpm Resting Blood Pressure: 106/62mmHg Pretest Chest Pain: None Nurse/Tech Notes S1S2, lungs CTA but diminished in RUL. Denied chest pain, SOA or dizziness. Consent: The procedure was explained to the patient in lay terms. Informed consent was witnessed. Benja eout was entered into [employer]. History and Stress Test performed by Dania Elmore R.N. Pharm. Details Pharmacologic stress testing was performed using 0.4mg per 5ml of regadenoson given intravenously ove r 7-10 seconds. Stress Symptoms Nausea. POST EXERCISE Reason for Termination: Infusion complete Max HR: 106 bpm Max Blood Pressure: 137/66mmHg Blood Pressure response to exercise: Normal blood pressure response during stress. Heart Rate response to exercise: Normal Chest Pain: No. Arrhythmia: No. ST Change: No. INTERPRETATION Stress EKG Conclusion: The resting EKG showed a sinus rhythm with minimal nonspecific ST segment meyers ges. The stress EKG showed no significant changes from baseline. No EKG evidence of stress-induced ischemia. Imaging Protocol IMAGE PROTOCOL: Rest Tc-99m/stress Tc-99m 1 day Rest: Stress: Viability: Radiopharm.Tc99m [id number] Sestamibi Dose10.1mCi 34mCi Duration 15min. 10min. Img Date 02/04/2017 02/04/2017 Inj-Img [id number]. 75min. Rest Admin Site:IV - Right ForearmAdministrator:Laquita Ivory, RT (R)(N) Stress Admin Site: IV - Right ForearmAdministrator: SJ Valdez, ARRT (R)(N) STRESS DATA End Diast. Vol.60.0mlAv. Heart Rate84.0bpm End Syst. Vol.6.0mlCO Index BSA0.0L/min Myocardial Lgdl662.0gEject. Vuuwmoqe29.0% Stress Rates Pk. Fill Rate2.78EDV/secLVtime Pk. Fill 72.20msec Pk. Empty Rate4.48ESV/secLVtime Pk. Ajuej652.00msec 1/3 Pk. Fill2.03EDV/sec Stress Scores Regional WT0.00Summed WT0.00 Regional WM0.00Summed WM0.00 LV Perfusion The stress scans showed no significant defects. The rest scans showed no significant defects. Nuclear imaging showed no reversible ischemia or infarct. Wall Motion Normal left ventricular systolic function with an ejection fraction of greater than 70%. LV Perf. Quant 17 Seg. SSS1.00 17 Seg. SRS0.00 17 Seg. SDS1.00 Stress Defect Extent (% LAD)0.00Rest Defect Extent (% LAD)0.00Rev. Defect Extent (% LAD)0.00 Stress Defect Extent (% LCX) 5.00Rest Defect Extent (% LCX)0.00Rev. Defect Extent (% LCX)5.00 Stress Defect Extent (% RCA)0.00Rest Defect Extent (% RCA)0.00Rev. Defect Extent (% RCA)0.00 Stress Defect Extent (% YA)0.90Rest Defect Extent (% YA)0.00Rev. Defect Extent (% YA)0.90 Conclusion 1. No EKG evidence of stress-induced ischemia. 2. Nuclear imaging shows no reversible ischemia or infarct. 3. Normal left ventricular systolic function with an ejection fraction of greater than 70%. 4. Low risk Lexiscan nuclear stress test.
--- NOTE | 2017-02-04 13:07 | PDOC ---
CARDIO Progress Notes Date and Time Date of Service 02/04/2017 Time of Evaluation 1307 Subjective Subjective: No Chest Pain, No shortness of breath, No Palpitations, No Dizziness Vitals Vitals Vital Signs Date Time Temp Pulse Resp B/P (MAP) Pulse Ox O2 Delivery O2 Flow Rate FiO2 02/04/17 11:06 98.0 85 20 117/56 (76) 97 Room Air 98.0 Weight Weight [ ] Input and Output Intake and Output Intake and Output 02/04/17 06:59 Intake Total 1720 ml Balance 1720 ml Intake Oral 1720 ml # Voids 3 Laboratory Labs Laboratory Tests Test 02/04/17 03:20 Sodium Level 141 mmol/L (136-145) Potassium Level 4.0 mmol/L (3.5-5.1) Chloride Level 104 mmol/L (98-107) Carbon Dioxide Level 31 mmol/L (21-32) Anion Gap 6 (6-14) Blood Urea Nitrogen 15 mg/dL (7-20) Creatinine 1.1 mg/dL (0.6-1.0) Estimated GFR (Cockcroft-Gault) 58.9 Glucose Level 97 mg/dL (70-99) Calcium Level 9.0 mg/dL (8.5-10.1) Triglycerides Level 246 mg/dL (0-150) Cholesterol Level 189 mg/dL (0-200) LDL Cholesterol, Calculated 100 mg/dL (0-100) VLDL Cholesterol, Calculated 49 mg/dL (0-40) Non-HDL Cholesterol Calculated 149 mg/dL (0-129) HDL Cholesterol 40 mg/dL (40-60) Cholesterol/HDL Ratio 4.7 Physical Exam HEENT: Neck Supple W Full Motion Chest: Symmetric LUNGS: Clear to Auscultation Heart: S1S2, RRR, no murmurs Abdomen: Soft N/T Extremities: No Edema Neurology: alert, oriented, follow commands Assessment Assessment 1. Chest discomfort. MPI is non-ischemic 2. Hypertension. controlled with meds 3. Hyperlipidemia, mixed continue statin therapy may discharge. DADA ARMSTRONG APRN Feb 04, 2017 13:07
--- NOTE | 2017-02-05 19:20 | DS ---
DATE OF DISCHARGE: 02/04/2017 HOSPITAL SUMMARY: The patient came in with fast heartbeat and some chest pain with no specific physical findings. All of her laboratory studies were unremarkable and she had no history of coronary artery disease in the past. Laboratory studies were normal and MPI was reportedly normal per nurses' notes and the patient was discharged on the evening of the as she was low risk for ischemic heart disease. FINAL DIAGNOSES: 1. Chest pain, etiology undetermined. 2. Hypertension, stable. OPERATIONS, PROCEDURES, COMPLICATIONS: None. CONSULTATIONS: Dr. Santos's group. DISPOSITION: Continue all meds the same. Follow up with Dr. Steiner in 1-2 weeks as scheduled. PROGNOSIS: Good. TERESITA TOLEDO MD DR: KAI/nts JOB#: [id number] / [id number]
== END 2017-02-04 14:35 | disposition home or self-care (01) ==
LOC: ER 16:00 → 2 NORTH 17:40 → INTOOBSV 17:40
PROVIDERS: ADMIT Internal Medicine; ATTEND Internal Medicine
DX: R07.89 Other chest pain (principal); R00.0 Tachycardia, unspecified; I10 Essential (primary) hypertension; E78.2 Mixed hyperlipidemia; E78.00 Pure hypercholesterolemia, unspecified; J45.909 Unspecified asthma, uncomplicated; M19.90 Unspecified osteoarthritis, unspecified site; Z79.899 Other long term (current) drug therapy; Z90.710 Acquired absence of both cervix and uterus; Z82.49 Family history of ischemic heart disease and other diseases of the circulatory system; Z85.9 Personal history of malignant neoplasm, unspecified
CPT/HCPCS: 36415; 71020; 78452; 80048; 80061; 83735; 83880; 84443; 84484; 85027; 93005; 93017; 96365; 96375; 96376; 99285; A9500; G0378; J2405; J2785; J3010; J3475; Q0175; 96374; G0379

== ENCOUNTER → 2017-06-03 | Outpatient (CLI) | payer OTHER ==
--- NOTE | 2017-06-04 14:35 | RAD ---
DATE: 06/03/17 EXAM: DIGITAL SCREEN BILAT W/CAD HISTORY: Routine screening COMPARISON: 03/26/16 This study was interpreted with the benefit of Computerized Aided Detection (CAD). TECHNIQUE: Routine CC and MLO views of both breasts are obtained. FINDINGS: Breast Density: SCATTERED The breast parenchyma shows scattered fibroglandular densities. Breast parenchyma level B. . No suspicious clustered microcalcifications, focal asymmetric densities or masses are seen. Benign stable calcifications and nodularities are redemonstrated. Skin and nipples are intact IMPRESSION: Benign findings BI-RADS CATEGORY: 2 BENIGN FINDING(S) RECOMMENDED FOLLOW-UP: 12M 12 MONTH FOLLOW-UP PQRS compliance statement: Patient information was entered into a reminder system with a target due date for the next mammogram. Mammography is a sensitive method for finding small breast cancers, but it does not detect them all and is not a substitute for careful clinical examination. A negative mammogram does not negate a clinically suspicious finding and should not result in delay in biopsying a clinically suspicious abnormality. "Our facility is accredited by the [employer] Mammography Program."
== END | disposition home or self-care (01) ==
LOC: MAMMO 13:13
PROVIDERS: ATTEND Internal Medicine
DX: Z12.31 Encounter for screening mammogram for malignant neoplasm of breast (principal)
CPT/HCPCS: G0202; 77067

== ENCOUNTER 2017-11-12 09:24 | Inpatient (IN) | payer OTHER ==
[2017-11-12 09:59] LABS: ADD MAN DIFF? NO
[2017-11-12 10:03] LABS: BASO % 0 % (0-3); EOS % 0 % (0-3); HEMATOCRIT 46.4 % (36.0-47.0); HEMOGLOBIN 15.3 g/dL (12.0-15.5); LYMPH # 1.4 x10^3/uL (1.0-4.8); LYMPH % 28 % (24-48); MEAN CORPUSCULAR HEMOGLOBIN 29 pg (25-35); MEAN CORPUSCULAR HGB CONC 33 g/dL (31-37); MEAN CORPUSCULAR VOLUME 88 fL (79-100); MONO # 0.9 x10^3/uL (0.0-1.1); MONO % 18 % (0-9); NEUT # 2.7 x10^3uL (1.8-7.7); NEUT % 54 % (31-73); PLATELET COUNT 188 x10^3/uL (140-400); RED CELL DISTRIBUTION WIDTH 15.1 % (11.5-14.5); WHITE BLOOD COUNT 5.1 x10^3/uL (4.0-11.0)
[2017-11-12 10:10] LABS: ANION GAP 15 (6-14); BLOOD UREA NITROGEN 43 mg/dL (7-20); BUN/CREATININE RATIO 29 (6-20); CALCIUM 9.8 mg/dL (8.5-10.1); CARBON DIOXIDE 27 mmol/L (21-32); CHLORIDE 94 mmol/L (98-107); CREATININE 1.5 mg/dL (0.6-1.0); GFR 41.1; GLUCOSE 106 mg/dL (70-99); POTASSIUM 3.9 mmol/L (3.5-5.1); SODIUM 136 mmol/L (136-145)
[2017-11-12 10:15] LABS: ALBUMIN 4.1 g/dL (3.4-5.0); ALBUMIN/GLOBULIN RATIO 0.7 (1.0-1.7); ALK PHOS 86 U/L (46-116); ALT (SGPT) 26 U/L (14-59); AST (SGOT) 51 U/L (15-37); TOTAL BILIRUBIN 0.4 mg/dL (0.2-1.0); TOTAL PROTEIN 9.6 g/dL (6.4-8.2)
[2017-11-12 10:19] LABS: TROPONINI < 0.017 ng/mL (0.000-0.055)
[2017-11-12 10:23] LABS: THYROID STIM HORMONE (TSH) 4.076 uIU/mL (0.358-3.74)
[2017-11-12] MEDS: IV NORMAL SALINE 1000ML BAG 1,000 ML IV ×3 (11:12→20:20)
[2017-11-12] MEDS: ONDANSETRON PF 4 MG/2 ML VIAL. IV ×2 (11:13→15:16)
[2017-11-12 13:11] LABS: BILIRUBIN,URINE NEGATIVE (NEG); CLARITY,URINE CLEAR; COLOR,URINE YELLOW; GLUCOSE,URINE NEGATIVE (NEG); NITRITE,URINE NEGATIVE (NEG); PH,URINE 5.5; PROTEIN,URINE 30 mg/dL (NEG-TRACE); UROBILINOGEN,URINE 0.2 mg/dL (0.2 mg/dL)
[2017-11-12 13:21] LABS: BACTERIA,URINE 0 /HPF (0-FEW); RBC,URINE 0 /HPF (0-2); WBC,URINE OCC /HPF (0-4)
[2017-11-12 13:22] LABS: AMORPHOUS SEDIMENT,UR PRESENT /HPF; HYALINE CASTS, URINE MODERATE /HPF
[2017-11-12 14:33] LABS: LIPASE 374 U/L (73-393)
[2017-11-13 06:06] LABS: ADD MAN DIFF? NO
[2017-11-13] MEDS: IV NORMAL SALINE 1000ML BAG 1,000 ML IV ×2 (06:10→16:42)
[2017-11-13 06:11] LABS: BASO % 0 % (0-3); EOS % 0 % (0-3); HEMATOCRIT 36.6 % (36.0-47.0); LYMPH # 1.1 x10^3/uL (1.0-4.8); LYMPH % 24 % (24-48); MEAN CORPUSCULAR HEMOGLOBIN 29 pg (25-35); MEAN CORPUSCULAR HGB CONC 33 g/dL (31-37); MEAN CORPUSCULAR VOLUME 88 fL (79-100); MONO # 0.6 x10^3/uL (0.0-1.1); MONO % 13 % (0-9); NEUT # 2.9 x10^3uL (1.8-7.7); NEUT % 63 % (31-73); PLATELET COUNT 136 x10^3/uL (140-400); RED BLOOD COUNT 4.16 x10^6/uL (3.50-5.40); RED CELL DISTRIBUTION WIDTH 14.5 % (11.5-14.5); WHITE BLOOD COUNT 4.5 x10^3/uL (4.0-11.0)
[2017-11-13 07:11] LABS: ALBUMIN 3.1 g/dL (3.4-5.0); ALBUMIN/GLOBULIN RATIO 0.8 (1.0-1.7); ALK PHOS 63 U/L (46-116); ALT (SGPT) 18 U/L (14-59); ANION GAP 12 (6-14); AST (SGOT) 30 U/L (15-37); CARBON DIOXIDE 24 mmol/L (21-32); CHLORIDE 105 mmol/L (98-107); CREATININE 0.9 mg/dL (0.6-1.0); GFR 74.1; GLUCOSE 82 mg/dL (70-99); POTASSIUM 3.5 mmol/L (3.5-5.1); SODIUM 141 mmol/L (136-145); TOTAL BILIRUBIN 0.3 mg/dL (0.2-1.0); TOTAL PROTEIN 6.9 g/dL (6.4-8.2)
[2017-11-13 07:30] LABS: BLOOD UREA NITROGEN 23 mg/dL (7-20); BUN/CREATININE RATIO 26 (6-20)
[2017-11-13] MEDS: METOPROLOL SUCC 24HR ER 50 MG TAB.ER.24H. PO (08:57)
[2017-11-13] MEDS: CETIRIZINE HCL 10 MG TABLET. PO (08:57)
[2017-11-13] MEDS: FAMOTIDINE 20 MG TABLET. PO (08:57)
[2017-11-13 16:38] LABS: FREE T4 1.47 ng/dL (0.76-1.46)
[2017-11-13] MEDS: DULoxetine HCL 30 MG CAPSULE.DR PO (16:40)
[2017-11-13] MEDS: POLYETHYLENE GLYCOL 3350 17 GM PACKET. PO (16:40)
[2017-11-13] MEDS: ENOXAPARIN 30 MG/0.3 ML SYRINGE. SQ (16:41)
[2017-11-13] MEDS: AMITRIPTYLINE HCL 25 MG TABLET. PO ×2 (23:42)
[2017-11-13] MEDS: PERPHENAZINE 2 MG TABLET PO ×2 (23:42)
[2017-11-14 06:00] LABS: HEMATOCRIT 36.6 % (36.0-47.0); HEMOGLOBIN 12.2 g/dL (12.0-15.5); MEAN CORPUSCULAR HEMOGLOBIN 29 pg (25-35); MEAN CORPUSCULAR HGB CONC 34 g/dL (31-37); MEAN CORPUSCULAR VOLUME 87 fL (79-100); PLATELET COUNT 130 x10^3/uL (140-400); RED CELL DISTRIBUTION WIDTH 14.3 % (11.5-14.5); WHITE BLOOD COUNT 3.8 x10^3/uL (4.0-11.0)
[2017-11-14 06:16] LABS: ANION GAP 10 (6-14); BLOOD UREA NITROGEN 8 mg/dL (7-20); CALCIUM 8.8 mg/dL (8.5-10.1); CARBON DIOXIDE 28 mmol/L (21-32); CHLORIDE 104 mmol/L (98-107); CREATININE 0.7 mg/dL (0.6-1.0); GLUCOSE 93 mg/dL (70-99); POTASSIUM 3.3 mmol/L (3.5-5.1); SODIUM 142 mmol/L (136-145)
[2017-11-14] MEDS: POLYETHYLENE GLYCOL 3350 17 GM PACKET. PO (08:47)
[2017-11-14] MEDS: DULoxetine HCL 30 MG CAPSULE.DR PO (08:47)
[2017-11-14] MEDS: CETIRIZINE HCL 10 MG TABLET. PO (08:48)
[2017-11-14] MEDS: METOPROLOL SUCC 24HR ER 50 MG TAB.ER.24H. PO (08:48)
[2017-11-14] MEDS: FAMOTIDINE 20 MG TABLET. PO (08:48)
[2017-11-14] MEDS: ENOXAPARIN 30 MG/0.3 ML SYRINGE. SQ (21:12)
[2017-11-14] MEDS: PERPHENAZINE 2 MG TABLET PO (21:12)
[2017-11-14] MEDS: AMITRIPTYLINE HCL 25 MG TABLET. PO (21:12)
[2017-11-14] MEDS: amLODIPine BESYLATE 5 MG TABLET PO (23:55)
[2017-11-15] MEDS: IOHEXOL 300 MG/ML 100ML VIAL. IV (08:15)
[2017-11-15 08:42] LABS: INR 1.1 (0.8-1.1); PARTIAL THROMBOPLASTIN TIME 36 SEC (24-38); PROTHROMBIN TIME PATIENT 13.2 SEC (11.7-14.0)
[2017-11-15] MEDS: CETIRIZINE HCL 10 MG TABLET. PO (09:00)
[2017-11-15] MEDS ORDERED: ACETAMINOPHEN 325 MG TABLET. PO (09:00)
[2017-11-15] MEDS ORDERED: ACETAMINOPHEN 650 MG SUPP.RECT. PR (09:00)
[2017-11-15] MEDS: DULoxetine HCL 30 MG CAPSULE.DR PO ×2 (09:00→11:02)
[2017-11-15] MEDS ORDERED: ASPIRIN 300 MG SUPP.RECT PR (09:00)
[2017-11-15] MEDS ORDERED: ENOXAPARIN 30 MG/0.3 ML SYRINGE. SQ (09:15)
[2017-11-15] MEDS: METOPROLOL SUCC 24HR ER 50 MG TAB.ER.24H. PO (11:02)
[2017-11-15] MEDS: FAMOTIDINE 20 MG TABLET. PO (11:02)
[2017-11-15] MEDS: POLYETHYLENE GLYCOL 3350 17 GM PACKET. PO (11:22)
[2017-11-15 14:43] LABS: POC GLUCOSE 103 mg/dL (70-99)
[2017-11-15] MEDS: ENOXAPARIN 30 MG/0.3 ML SYRINGE. SQ (17:32)
[2017-11-15] MEDS: amLODIPine BESYLATE 5 MG TABLET PO (20:40)
[2017-11-15] MEDS: PERPHENAZINE 2 MG TABLET PO (20:40)
[2017-11-15] MEDS: AMITRIPTYLINE HCL 25 MG TABLET. PO (20:40)
[2017-11-16 05:55] LABS: CHOLESTEROL 151 mg/dL (0-200); CHOLESTEROL/HDL RATIO 2.7; HDLC 55 mg/dL (40-60); LDLC 80 mg/dL (0-100); NON-HDL CHOLESTEROL 96 mg/dL (0-129); TRIGLYCERIDES 81 mg/dL (0-150); VLDLC 16 mg/dL (0-40)
[2017-11-16] MEDS: CETIRIZINE HCL 10 MG TABLET. PO (09:00)
[2017-11-16] MEDS: FAMOTIDINE 20 MG TABLET. PO (09:00)
[2017-11-16] MEDS: METOPROLOL SUCC 24HR ER 50 MG TAB.ER.24H. PO (14:27)
[2017-11-16] MEDS: ASPIRIN ENTERIC COATED 325 MG TABLET.DR. PO (14:27)
[2017-11-16] MEDS: POLYETHYLENE GLYCOL 3350 17 GM PACKET. PO (14:28)
[2017-11-16] MEDS: amLODIPine BESYLATE 5 MG TABLET PO (14:28)
[2017-11-16] MEDS: ENOXAPARIN 30 MG/0.3 ML SYRINGE. SQ (16:00)
[2017-11-16] MEDS: AMITRIPTYLINE HCL 25 MG TABLET. PO (21:04)
[2017-11-16] MEDS: PERPHENAZINE 2 MG TABLET PO (21:04)
[2017-11-16] MEDS: amLODIPine BESYLATE 10 MG TABLET PO (21:18)
[2017-11-17] MEDS: FAMOTIDINE 20 MG TABLET. PO (09:00)
[2017-11-17] MEDS: CETIRIZINE HCL 10 MG TABLET. PO (09:00)
[2017-11-17] MEDS: POLYETHYLENE GLYCOL 3350 17 GM PACKET. PO (09:47)
[2017-11-17] MEDS: ASPIRIN ENTERIC COATED 325 MG TABLET.DR. PO (09:49)
[2017-11-17] MEDS: METOPROLOL SUCC 24HR ER 50 MG TAB.ER.24H. PO (09:49)
[2017-11-17] MEDS ORDERED: ENOXAPARIN 40 MG/0.4 ML SYRINGE. SQ (14:02)
[2017-11-17] MEDS: ENOXAPARIN 40 MG/0.4 ML SYRINGE. SQ (16:00)
[2017-11-17] MEDS: amLODIPine BESYLATE 10 MG TABLET PO (21:40)
[2017-11-17] MEDS: AMITRIPTYLINE HCL 10 MG TABLET. PO (21:41)
[2017-11-17] MEDS: PERPHENAZINE 2 MG TABLET PO (21:41)
[2017-11-18] MEDS: CETIRIZINE HCL 10 MG TABLET. PO (08:49)
[2017-11-18] MEDS: METOPROLOL SUCC 24HR ER 50 MG TAB.ER.24H. PO (08:49)
[2017-11-18] MEDS: POLYETHYLENE GLYCOL 3350 17 GM PACKET. PO (08:49)
[2017-11-18] MEDS: POTASSIUM CHLORIDE 10 MEQ TABLET.ER. PO ×3 (08:49→17:55)
[2017-11-18] MEDS: FAMOTIDINE 20 MG TABLET. PO (08:49)
[2017-11-18] MEDS: ASPIRIN ENTERIC COATED 81 MG TABLET.DR. PO (08:50)
[2017-11-18 18:03] LABS: ADD MAN DIFF? NO
[2017-11-18 18:08] LABS: BASO % 0 % (0-3); EOS # 0.2 x10^3/uL (0.0-0.7); EOS % 2 % (0-3); HEMOGLOBIN 12.1 g/dL (12.0-15.5); LYMPH # 1.7 x10^3/uL (1.0-4.8); LYMPH % 25 % (24-48); MEAN CORPUSCULAR HEMOGLOBIN 29 pg (25-35); MEAN CORPUSCULAR HGB CONC 34 g/dL (31-37); MEAN CORPUSCULAR VOLUME 88 fL (79-100); MONO # 0.8 x10^3/uL (0.0-1.1); MONO % 12 % (0-9); NEUT # 4.1 x10^3uL (1.8-7.7); NEUT % 60 % (31-73); PLATELET COUNT 221 x10^3/uL (140-400); RED CELL DISTRIBUTION WIDTH 14.3 % (11.5-14.5); WHITE BLOOD COUNT 6.8 x10^3/uL (4.0-11.0)
[2017-11-18 18:24] LABS: ALBUMIN 3.4 g/dL (3.4-5.0); ALBUMIN/GLOBULIN RATIO 0.8 (1.0-1.7); ALK PHOS 71 U/L (46-116); ALT (SGPT) 22 U/L (14-59); ANION GAP 5 (6-14); AST (SGOT) 21 U/L (15-37); BLOOD UREA NITROGEN 14 mg/dL (7-20); BUN/CREATININE RATIO 16 (6-20); CALCIUM 9.5 mg/dL (8.5-10.1); CARBON DIOXIDE 34 mmol/L (21-32); CHLORIDE 103 mmol/L (98-107); CREATININE 0.9 mg/dL (0.6-1.0); GFR 74.1; GLUCOSE 85 mg/dL (70-99); POTASSIUM 3.4 mmol/L (3.5-5.1); SODIUM 142 mmol/L (136-145); TOTAL BILIRUBIN 0.4 mg/dL (0.2-1.0); TOTAL PROTEIN 7.5 g/dL (6.4-8.2)
[2017-11-18] MEDS: AMITRIPTYLINE HCL 10 MG TABLET. PO (20:42)
[2017-11-18] MEDS: amLODIPine BESYLATE 10 MG TABLET PO (20:53)
[2017-11-18] MEDS: PERPHENAZINE 2 MG TABLET PO (20:53)
[2017-11-19] MEDS: POTASSIUM CHLORIDE 10 MEQ TABLET.ER. PO ×3 (07:48→17:15)
[2017-11-19] MEDS: ASPIRIN 325 MG TABLET PO (07:48)
[2017-11-19] MEDS: FAMOTIDINE 20 MG TABLET. PO (07:49)
[2017-11-19] MEDS: METOPROLOL SUCC 24HR ER 50 MG TAB.ER.24H. PO (07:49)
[2017-11-19] MEDS: POLYETHYLENE GLYCOL 3350 17 GM PACKET. PO (07:49)
[2017-11-19] MEDS: CETIRIZINE HCL 10 MG TABLET. PO (07:49)
[2017-11-19 10:05] LABS: BILIRUBIN,URINE NEGATIVE (NEG); CLARITY,URINE CLEAR; COLOR,URINE YELLOW; GLUCOSE,URINE NEGATIVE (NEG); NITRITE,URINE NEGATIVE (NEG); PROTEIN,URINE NEGATIVE (NEG-TRACE); UROBILINOGEN,URINE 0.2 mg/dL (0.2 mg/dL)
[2017-11-19 10:29] LABS: BACTERIA,URINE MODERATE /HPF (0-FEW); RBC,URINE 0 /HPF (0-2); SQUAMOUS EPITHELIAL CELL,UR MOD /LPF
[2017-11-19] MEDS ORDERED: amLODIPine BESYLATE 5 MG TABLET PO (21:00)
== END 2017-11-19 17:33 | disposition home health service (06) | DRG 77 ==
LOC: ER 09:24 → 6 SOUTH 14:41
DX: I67.4 Hypertensive encephalopathy (principal); G93.41 Metabolic encephalopathy; N17.9 Acute kidney failure, unspecified; G45.9 Transient cerebral ischemic attack, unspecified; R47.01 Aphasia; N13.30 Unspecified hydronephrosis; B34.9 Viral infection, unspecified; E86.0 Dehydration; E78.5 Hyperlipidemia, unspecified; F32.9 Major depressive disorder, single episode, unspecified; I10 Essential (primary) hypertension; G47.00 Insomnia, unspecified; J45.909 Unspecified asthma, uncomplicated; K59.00 Constipation, unspecified; F99 Mental disorder, not otherwise specified; M19.90 Unspecified osteoarthritis, unspecified site; R29.703 NIHSS score 3; Z79.82 Long term (current) use of aspirin; Z85.43 Personal history of malignant neoplasm of ovary; Z90.710 Acquired absence of both cervix and uterus; Z88.6 Allergy status to analgesic agent; Z88.1 Allergy status to other antibiotic agents; Z88.0 Allergy status to penicillin
CPT/HCPCS: 36415; 70450; 70496; 70498; 70551; 71045; 74018; 76705; 80048; 80053; 80061; 81001; 82962; 83690; 84439; 84443; 84481; 84484; 85025; 85027; 85610; 85730; 87086; 92526-GN; 92610-GN; 93005; 93306; 96361; 96374; 96376; 97110-GO; 97110-GP; 97116-GP; 97161-GP; 97165-GO; 97530-GO; 97535-GO; 99285; 99285-25; J1650; J2405; J7030; Q0175; Q9967

== ENCOUNTER → 2018-06-13 | Outpatient (CLI) | payer OTHER ==
[2017-11-19 15:00] VITALS: BP 118/56
[~2018-06-13] MED LIST changes: +AMLO10TA6 PO; -AMLO5TAB2 PO; +AMLO5TAB7 PO
--- NOTE | 2018-06-13 13:26 | RAD ---
DATE: 06/13/2018 EXAM: MAMMO KASSANDRA SCREENING BILATERAL HISTORY: Routine screening COMPARISON: 06/03/2017 This study was interpreted with the benefit of Computerized Aided Detection (CAD). Breast Density: SCATTERED The breast parenchyma shows scattered fibroglandular densities. Breast parenchyma level B. FINDINGS: 2-D and 3-D tomosynthesis imaging was performed in CC and MLO projections. No new or enlarging breast densities are seen. Benign calcifications are present. No suspicious microcalcifications have developed. IMPRESSION: Stable mammograms without evidence of malignancy. BI-RADS CATEGORY: 2 BENIGN FINDING(S) RECOMMENDED FOLLOW-UP: 12M 12 MONTH FOLLOW-UP PQRS compliance statement: Patient information was entered into a reminder system with a target due date for the next mammogram. Mammography is a sensitive method for finding small breast cancers, but it does not detect them all and is not a substitute for careful clinical examination. A negative mammogram does not negate a clinically suspicious finding and should not result in delay in biopsying a clinically suspicious abnormality. "Our facility is accredited by the [employer] Mammography Program."
== END | disposition home or self-care (01) ==
LOC: MAMMO 12:25
DX: Z12.31 Encounter for screening mammogram for malignant neoplasm of breast (principal)
CPT/HCPCS: 77063; 77067

== ENCOUNTER → 2018-09-26 | Outpatient (CLI) | payer OTHER ==
[2017-11-19 15:00] VITALS: BP 118/56
[~2018-09-26] MED LIST changes: -AMLO10TA6 PO; +AMLO10TA8 PO; +AMLO5TAB10 PO; -AMLO5TAB7 PO; -DILT120C80 PO; +DILT120C85 PO; +HYDR-3164 PO; -HYDR-971 PO
--- NOTE | 2018-09-26 10:23 | RAD ---
Exam: Thoracic spine Date: 09/26/2018 9:15 AM CLINICAL HISTORY: CHRONIC UPPER BACK PAIN COMPARISON: None available. FINDINGS: AP and lateral/swimmers views of the thoracic spine submitted. Moderate superimposed artifact at the cervicothoracic junction on the lateral view based on technique. Vertebral body heights are preserved. Mild disc height loss at multiple mid-lower thoracic levels. Small anterior endplate osteophytes. Straightening of the thoracic kyphosis. No spondylolisthesis. Negative focal paraspinal line deviation/hematoma. IMPRESSION: 1. Multilevel degenerative changes of the thoracic spine 2. No evidence for acute fracture or subluxation. Electronically signed by: Tony Galvin MD (09/26/2018 10:18 AM) [facility]
== END | disposition home or self-care (01) ==
LOC: RAD 08:48
PROVIDERS: ATTEND Family Medicine
DX: M47.814 Spondylosis without myelopathy or radiculopathy, thoracic region (principal); M25.78 Osteophyte, vertebrae
CPT/HCPCS: 72072

== ENCOUNTER → 2019-06-15 | Outpatient (CLI) | payer MEDICARE, OTHER ==
[2017-11-19 15:00] VITALS: BP 118/56
[~2019-06-15] MED LIST changes: -DILT120C85 PO; +DILT120C99 PO; +SIMV10TA15 PO; -SIMV10TA3 PO
--- NOTE | 2019-06-15 13:44 | RAD ---
DATE: 06/13/2019. EXAM: DIGITAL SCREEN BILAT W/CAD. HISTORY: Routine mammographic screening. COMPARISON: 06/13/2018. This study was interpreted with the benefit of Computerized Aided Detection (CAD). FINDINGS: Breast Density: HETERO The breast parenchyma is heterogenously dense, which could reduce sensitivity of mammography. Breast parenchyma level C.. Coarse and vascular calcifications are benign. A benign nodule superolaterally on the right is stable. There are no suspicious masses, microcalcifications or architectural distortion. BI-RADS CATEGORY: 2 BENIGN FINDING(S). RECOMMENDED FOLLOW-UP: 12M 12 MONTH FOLLOW-UP. PQRS compliance statement: Patient information was entered into a reminder system with a target due date 06/13/2020 for the next mammogram. Mammography is a sensitive method for finding small breast cancers, but it does not detect them all and is not a substitute for careful clinical examination. A negative mammogram does not negate a clinically suspicious finding and should not result in delay in biopsying a clinically suspicious abnormality. "Our facility is accredited by the [employer] Mammography [employer]."
== END | disposition home or self-care (01) ==
LOC: MAMMO 10:24
PROVIDERS: ATTEND Internal Medicine
DX: Z12.31 Encounter for screening mammogram for malignant neoplasm of breast (principal); N64.89 Other specified disorders of breast
CPT/HCPCS: 77067

== ENCOUNTER 2019-08-26 00:33 | Emergency (ER) | payer MEDICARE ==
[~2019-08-26] VITALS: Ht 154.9 cm; Wt 63.5 kg
[2019-08-26 00:33] VITALS: BP 135/65
[~2019-08-26 00:33] MED LIST changes: +DOCU-153 PO; +PRED50TA PO
--- NOTE | 2019-08-26 00:52 | PHYS DOC ---
Past Medical History Past Medical History: High Cholesterol, Hypertension Additional Past Medical Histor: Insomnia, palpations Past Surgical History: Hysterectomy Alcohol Use: None Drug Use: None Adult General Chief Complaint Chief Complaint: UPPER EXTREMITY SWELLING [facility] HPI 73-year-old female presents to the emergency department with complaints of right hand swelling. Patient states she went to bed 8 PM woke this morning with her right thumb and palmar aspect of right hand swelling, she does have redness appreciated to the thenar eminence. Patient has history of angioedema and was recently seen in the hospital and subsequently discharged. She has no airway disturbance at this time, no shortness of breath, no swelling to her face. Nothing makes her symptoms worse, nothing makes her symptoms better. He denies any chest pain, shortness breath, nausea, vomiting, headache or visual change. She states her hand is tingly. Review of Systems Review of Systems Constitutional: Denies fever or chills [] HENT: Denies nasal congestion or sore throat [] Respiratory: Denies cough or shortness of breath [] Cardiovascular: No additional information not addressed in HPI [] GI: Denies abdominal pain, nausea, vomiting, bloody stools or diarrhea [] Musculoskeletal: Denies back pain or joint pain [] Integument: redness to right thumb Neurologic: Denies headache, focal weakness or sensory changes [] All other systems were reviewed and found to be within normal limits, except as documented in this note. Current Medications Current Medications Current Medications Medications (Trade) Dose Ordered Sig/Jeyson Start Time Stop Time Status Last Admin Dose Admin Diphenhydramine HCl (Benadryl) 25 mg 1X ONCE 08/26/19 01:15 08/26/19 01:16 DC 08/26/19 01:04 25 MG Allergies Allergies Allergies Coded Allergies Type Severity Reaction Last Updated Verified benazepril Allergy Severe ANGIOEDEMA 09/24/16 Yes lisinopril Allergy Severe ANGIOEDEMA 08/10/19 Yes Penicillins Allergy Intermediate 09/24/16 Yes Physical Exam Physical Exam Constitutional: Well developed, well nourished, no acute distress, non-toxic appearance. [] Cardiovascular:Heart rate regular rhythm, no murmur [] Lungs & Thorax: Bilateral breath sounds clear to auscultation [] Abdomen: Bowel sounds normal, soft, no tenderness, no masses, no pulsatile masses. [] Skin: Warm, dry, no erythema, no rash. [] Back: No tenderness, no CVA tenderness. [] Extremities: redness appreciated to palmar aspect of right hand, NTTP on exam[] Neurologic: Alert and oriented X 3, no focal deficits noted. [] Psychologic: Affect normal, judgement normal, mood normal. [] Current Patient Data Vital Signs Vital Signs Date Time Temp Pulse Resp B/P (MAP) Pulse Ox O2 Delivery O2 Flow Rate FiO2 08/26/19 00:33 98.2 91 16 135/65 (88) 96 Room Air 98.2 EKG EKG [] Radiology/Procedures Radiology/Procedures [] Course & Med Decision Making Course & Med Decision Making Pertinent Labs and Imaging studies reviewed. (See chart for details) []73-year-old female presents to the emergency department with complaints of right hand swelling. Patient states she went to bed 8 PM woke this morning with her right thumb and palmar aspect of right hand swelling, she does have redness appreciated to the thenar eminence. Patient has history of angioedema and was recently seen in the hospital and subsequently discharged. She has no airway disturbance at this time, no shortness of breath, no swelling to her face. Nothing makes her symptoms worse, nothing makes her symptoms better. He denies any chest pain, shortness breath, nausea, vomiting, headache or visual change. She states her hand is tingly. Xray reviewed without evidence of fracture No FB appreciated Benadryl 25mg po x 1 Doxycycline po BID x 7 days upon discharge for possible cellulitis Return precautions provided Recommend follow up with PCP Shiv Disclaimer Dragon Disclaimer This electronic medical record was generated, in whole or in part, using a voice recognition dictation system. Departure Departure Impression: Primary Impression: Hand swelling Additional Impression: Cellulitis Disposition: HOME, SELF-CARE Condition: IMPROVED Referrals: ЕЛЕНА SEWELL MD (PCP) Patient Instructions: Cellulitis, [id number] Additional Instructions: Recommend follow up with PCP 3 - 5 days Return to the ER with worsening symptoms, intractable pain, fever, altered mental status Tylenol/Motrin as needed for pain Take antibiotics as directed Benadryl as needed Scripts Doxycycline Hyclate (DOXYCYCLINE HYCLATE) 100 Mg Capsule 1 CAP PO BID, #14 CAP Prov: ELROY ALLRED MD 08/26/19 Problem Qualifiers Primary Impression: Hand swelling Laterality: right Qualified Codes: M79.89 - Other specified soft tissue disorders Additional Impression: Cellulitis Site of cellulitis: unspecified site Qualified Codes: L03.90 - Cellulitis, unspecified ELROY ALLRED MD Aug 26, 2019 00:52
[2019-08-26] MEDS ORDERED: diphenhydrAMINE HCL 25 MG CAPSULE PO ONE (01:15)
[2019-08-26] MEDS ORDERED: DOXY100C2 PO (01:31)
--- NOTE | 2019-08-26 08:05 | RAD ---
Two-view right hand HISTORY: Swelling without injury FINDINGS: No evidence of acute fracture or aggressive bone destruction. No apparent soft tissue swelling. Alignment maintained without dislocation. IMPRESSION: No evidence of acute radiographic finding. Electronically signed by: Chago Dickson MD (08/26/2019 8:02 AM) [facility]
[2019-08-26] MEDS ORDERED: diphenhydrAMINE 50 MG/ML VIAL ONE (08:22)
[2019-08-26] MEDS ORDERED: FAMOTIDINE 20 MG/2 ML VIAL ONE (08:22)
[2019-08-26] MEDS ORDERED: DEXAMETHASONE SOD PHOS 20 MG/5 ML VIAL. ONE (08:22)
== END 2019-08-26 01:35 | disposition home or self-care (01) ==
LOC: ER 00:33
DX: L03.113 Cellulitis of right upper limb (principal); I10 Essential (primary) hypertension; E78.00 Pure hypercholesterolemia, unspecified; Z88.0 Allergy status to penicillin; Z88.8 Allergy status to other drugs, medicaments and biological substances
CPT/HCPCS: 73120; 99284; Q0163

== ENCOUNTER 2019-08-26 07:59 | Inpatient (IN) | payer MEDICARE ==
[~2019-08-26] VITALS: Ht 154.9 cm; Wt 60.3 kg
[~2019-08-26 07:59] MED LIST changes: +DOXY100C2 PO
--- NOTE | 2019-08-26 08:26 | PHYS DOC ---
Past Medical History Past Medical History: High Cholesterol, Hypertension Additional Past Medical Histor: Insomnia, palpations, ANGIOEDEMA, OVARIAN CA Past Surgical History: Hysterectomy Additional Past Surgical Histo: OVARIAN CA Alcohol Use: None Drug Use: None Adult General Chief Complaint Chief Complaint: ALLERGIC REACTION HPI HPI Patient is a 73-year-old female with past medical history of angioedema, ovarian cancer, hypertension, and high cholesterol is presenting to the emergency department with a couple hours history of tongue swelling. She states that early this morning around 1 AM she was seen in the emergency department for right hand swelling and about 1 hour ago she developed tongue swelling. When she was here earlier she was given Benadryl and discharged home. Denies any pain or respiratory distress, chest pain, fever, chills, headache, confusion, dysuria, increased frequency, and abdominal pain. Patient is not on an JUDI inhibitor. Patient denies trauma. Review of Systems Review of Systems Constitutional: Denies fever or chills Eyes: Denies redness or eye pain HENT: Denies nasal congestion or sore throat, reports tongue swelling Respiratory: Denies cough or shortness of breath Cardiovascular: Denies chest pain or palpitations GI: Denies abdominal pain, nausea, or vomiting : Denies dysuria or hematuria Musculoskeletal: Denies back pain or joint pain Integument: Denies rash or skin lesions Neurologic: Denies headache, focal weakness or sensory changes Complete systems were reviewed and found to be within normal limits, except as documented in this note. Current Medications Current Medications Current Medications Medications (Trade) Dose Ordered Sig/Jeyson Start Time Stop Time Status Last Admin Dose Admin Dexamethasone Sodium Phosphate (Decadron) 10 mg 1X ONCE 08/26/19 08:30 08/26/19 08:31 DC 08/26/19 08:30 10 MG Diphenhydramine HCl (Benadryl) 50 mg 1X ONCE 08/26/19 08:30 08/26/19 08:31 DC 08/26/19 08:26 50 MG Famotidine (Pepcid Vial) 20 mg 1X ONCE 08/26/19 08:30 08/26/19 08:31 DC 08/26/19 08:29 20 MG Allergies Allergies Allergies Coded Allergies Type Severity Reaction Last Updated Verified benazepril Allergy Severe ANGIOEDEMA 09/24/16 Yes lisinopril Allergy Severe ANGIOEDEMA 08/10/19 Yes Penicillins Allergy Intermediate 09/24/16 Yes Physical Exam Physical Exam Constitutional: Well developed, well nourished, no acute distress, non-toxic appearance HENT: Normocephalic, atraumatic, oropharynx moist, localized left sided tongue swelling, no tenderness Eyes: Conjunctiva normal, no discharge Neck: Normal range of motion, no tenderness, supple Cardiovascular: Heart rate normal, regular rhythm Lungs & Thorax: Bilateral breath sounds clear to auscultation, no wheezing, no respiratory distress Abdomen: Soft, no tenderness Skin: Warm, dry, no erythema, no rash Back: No tenderness, no CVA tenderness Extremities: No tenderness, ROM intact, no edema Neurologic: Alert and oriented X 3, no focal deficits noted Psychologic: Affect normal, judgement normal, mood normal Current Patient Data Vital Signs Vital Signs Date Time Temp Pulse Resp B/P (MAP) Pulse Ox O2 Delivery O2 Flow Rate FiO2 08/26/19 09:10 80 137/64 (88) 92 Room Air 08/26/19 08:05 98.7 18 98.7 Lab Values Laboratory Tests Test 08/26/19 08:29 White Blood Count 9.2 x10^3/uL (4.0-11.0) Red Blood Count 4.73 x10^6/uL (3.50-5.40) Hemoglobin 13.9 g/dL (12.0-15.5) Hematocrit 41.6 % (36.0-47.0) Mean Corpuscular Volume 88 fL (79-100) Mean Corpuscular Hemoglobin 30 pg (25-35) Mean Corpuscular Hemoglobin Concent 34 g/dL (31-37) Red Cell Distribution Width 14.4 % (11.5-14.5) Platelet Count 217 x10^3/uL (140-400) Neutrophils (%) (Auto) 70 % (31-73) Lymphocytes (%) (Auto) 21 % (24-48) L Monocytes (%) (Auto) 6 % (0-9) Eosinophils (%) (Auto) 2 % (0-3) Basophils (%) (Auto) 1 % (0-3) Neutrophils # (Auto) 6.4 x10^3/uL (1.8-7.7) Lymphocytes # (Auto) 2.0 x10^3/uL (1.0-4.8) Monocytes # (Auto) 0.5 x10^3/uL (0.0-1.1) Eosinophils # (Auto) 0.2 x10^3/uL (0.0-0.7) Basophils # (Auto) 0.1 x10^3/uL (0.0-0.2) Prothrombin Time 13.1 SEC (11.7-14.0) Prothrombin Time INR 1.0 (0.8-1.1) Activated Partial Thromboplast Time 32 SEC (24-38) Sodium Level 143 mmol/L (136-145) Potassium Level 4.1 mmol/L (3.5-5.1) Chloride Level 102 mmol/L (98-107) Carbon Dioxide Level 28 mmol/L (21-32) Anion Gap 13 (6-14) Blood Urea Nitrogen 14 mg/dL (7-20) Creatinine 0.8 mg/dL (0.6-1.0) Estimated GFR (Cockcroft-Gault) 84.6 BUN/Creatinine Ratio 18 (6-20) Glucose Level 93 mg/dL (70-99) Calcium Level 10.0 mg/dL (8.5-10.1) Magnesium Level 2.2 mg/dL (1.8-2.4) Total Bilirubin 0.4 mg/dL (0.2-1.0) Aspartate Amino Transferase (AST) 22 U/L (15-37) Alanine Aminotransferase (ALT) 16 U/L (14-59) Alkaline Phosphatase 114 U/L (46-116) Total Protein 8.5 g/dL (6.4-8.2) H Albumin 4.4 g/dL (3.4-5.0) Albumin/Globulin Ratio 1.1 (1.0-1.7) Laboratory Tests 08/26/19 08:29 Laboratory Tests 08/26/19 08:29 EKG EKG [] Radiology/Procedures Radiology/Procedures [] Course & Med Decision Making Course & Med Decision Making Pertinent Labs and Imaging studies reviewed. (See chart for details) Patient is a 73-year-old female with past medical history of angioedema, ovarian cancer, hypertension, and high cholesterol is presenting to the emergency department with tongue swelling. Patient was seen and examined at bedside. Physical exam significant for localized left-sided tongue swelling, no respirato ry distress. Labs and medication ordered. Labs at baseline. Patient will be admitted for further evaluation and resolution of angioedema. Patient requiring admission for further evaluation and treatment. Discussed with Dr. Hopper (hospitalist) who is in agreement with admission. Discussed findings and plan with patient and family, who acknowledge understanding and agreement. Dragon Disclaimer Dragon Disclaimer This electronic medical record was generated, in whole or in part, using a voice recognition dictation system. Departure Departure Impression: Primary Impression: Angioedema Disposition: ADMITTED INPATIENT Admitting Physician: MARCO Lozada) Condition: STABLE Referrals: ЕЛЕНА SEWELL MD (PCP) Problem Qualifiers Primary Impression: Angioedema Encounter type: initial encounter Qualified Codes: T78.3XXA - Angioneurotic edema, initial encounter WILNER GREENE DO Aug 26, 2019 08:26
[2019-08-26] MEDS ORDERED: diphenhydrAMINE 50 MG/ML VIAL IVP ONE (08:30)
[2019-08-26] MEDS ORDERED: FAMOTIDINE 20 MG/2 ML VIAL IVP ONE (08:30)
[2019-08-26] MEDS ORDERED: DEXAMETHASONE SOD PHOS 4 MG/ML VIAL IVP ONE (08:30)
[2019-08-26 08:39] LABS: BASO # 0.1 x10^3/uL (0.0-0.2); BASO % 1 % (0-3); EOS # 0.2 x10^3/uL (0.0-0.7); EOS % 2 % (0-3); HEMATOCRIT 41.6 % (36.0-47.0); HEMOGLOBIN 13.9 g/dL (12.0-15.5); LYMPH % 21 % (24-48); MEAN CORPUSCULAR HEMOGLOBIN 30 pg (25-35); MEAN CORPUSCULAR HGB CONC 34 g/dL (31-37); MEAN CORPUSCULAR VOLUME 88 fL (79-100); MONO # 0.5 x10^3/uL (0.0-1.1); MONO % 6 % (0-9); NEUT # 6.4 x10^3/uL (1.8-7.7); NEUT % 70 % (31-73); PLATELET COUNT 217 x10^3/uL (140-400); RED BLOOD COUNT 4.73 x10^6/uL (3.50-5.40); RED CELL DISTRIBUTION WIDTH 14.4 % (11.5-14.5); WHITE BLOOD COUNT 9.2 x10^3/uL (4.0-11.0)
[2019-08-26 08:48] LABS: PROTHROMBIN TIME PATIENT 13.1 SEC (11.7-14.0)
[2019-08-26 08:59] LABS: CREATININE 0.8 mg/dL (0.6-1.0); GFR 84.6; POTASSIUM 4.1 mmol/L (3.5-5.1)
[2019-08-26 09:05] LABS: ALBUMIN 4.4 g/dL (3.4-5.0); ALBUMIN/GLOBULIN RATIO 1.1 (1.0-1.7); MAGNESIUM 2.2 mg/dL (1.8-2.4); TOTAL BILIRUBIN 0.4 mg/dL (0.2-1.0); TOTAL PROTEIN 8.5 g/dL (6.4-8.2)
[2019-08-26] MEDS ORDERED: ONDANSETRON PF 4 MG/2 ML VIAL. IV PRN (09:30)
[2019-08-26 10:12] LABS: BILIRUBIN,URINE NEGATIVE (NEG); CLARITY,URINE CLEAR; COLOR,URINE YELLOW; NITRITE,URINE NEGATIVE (NEG); PH,URINE 6.5; PROTEIN,URINE NEGATIVE (NEG-TRACE); UROBILINOGEN,URINE 0.2 mg/dL (0.2 mg/dL)
[2019-08-26 10:35] LABS: BACTERIA,URINE FEW /HPF (0-FEW); RBC,URINE 0 /HPF (0-2); SQUAMOUS EPITHELIAL CELL,UR MOD /LPF
[2019-08-26 11:59] VITALS: BP 141/70
--- NOTE | 2019-08-26 12:23 | NUR ---
Pt arrived to 6S around 1100. A&O x 4, very pleasant, no complaints of pain, VS stable. Denies the offer to send any belongings to security. Tongue still swollen, does have a lisp/slightly slurred speech. Will continue to monitor and finish admission assessment.
--- NOTE | 2019-08-26 13:43 | PDOC1 ---
History and Physical Date of Admission: Date of Admission DATE: 08/26/19 TIME: 13:39 Chief Complaint: Problems: (1) Syncope (2) Allergic reaction (3) Headache (4) Nausea (5) Chest pain (6) Chest pain (7) Dizziness (8) Prerenal azotemia (9) Nausea & vomiting (10) Hydronephrosis (11) Uncontrolled hypertension (12) Cellulitis (13) Hand swelling (14) Angioedema Chief Complain: Swollen tongue History of Present Illness: HPI: This is a pleasant elderly female well-known to my service. I have taken care of her family is well. Basically she had swollen hand this morning went to the ER and they gave her some medicine her home. After she laid down she noticed her tongue was swelling. Repeat present to the ER for evaluation. It appears the patient has angioedema but is not on lisinopril. I discussed the case with ER physician were mentum at the patient give her steroids Medrol and Pepcid Past medical history of angioedema, ovarian cancer, hypertension, and high cholesterol Denies any pain or respiratory distress, chest pain, fever, chills, headache, confusion, dysuria, increased frequency, and abdominal pain. Patient is not on an JUDI inhibitor. Patient denies trauma. Symptoms rated at 7 out of 10 She has associated anxiety Describes as irritating Allergies: Allergies: Coded Allergies: benazepril (Verified Allergy, Severe, ANGIOEDEMA, 09/24/16) lisinopril (Verified Allergy, Severe, ANGIOEDEMA, 08/10/19) Penicillins (Verified Allergy, Intermediate, 09/24/16) Family History: Family History: Angioedema Social History: Social Hisoty: She does not drink smoke or take drugs she's been for 4 years Current Medications: Current Medications Current Medications Dexamethasone Sodium Phosphate (Decadron) 10 mg 1X ONCE IVP Last administered on 08/26/19at 08:30; Start 08/26/19 at 08:30; Stop 08/26/19 at 08:31; Status DC Diphenhydramine HCl (Benadryl) 50 mg 1X ONCE IVP Last administered on 08/26/19at 08:26; Start 08/26/19 at 08:30; Stop 08/26/19 at 08:31; Status DC Famotidine (Pepcid Vial) 20 mg 1X ONCE IVP Last administered on 08/26/19at 08:29; Start 08/26/19 at 08:30; Stop 08/26/19 at 08:31; Status DC Ondansetron HCl (Zofran) 4 mg PRN Q8HRS PRN IV NAUSEA/VOMITING; Start 08/26/19 at 09:30; Stop 08/27/19 at 09:29 Active Scripts Active Doxycycline Hyclate 100 Mg Capsule 1 Cap PO BID Pepcid (Famotidine) 20 Mg Tablet 20 Mg PO HS PRN 10 Days Prednisone 50 Mg Tablet 1 Tab PO DAILY 7 Days Dok (Docusate Sodium) 100 Mg Capsule 100 Mg PO BID 10 Days Amlodipine Besylate 10 Mg Tablet 10 Mg PO QHS 30 Days Claritin (Loratadine) 10 Mg Tablet 1 Tab PO DAILY Reported Toprol Xl (Metoprolol Succinate) 50 Mg Tab.er.24h 1 Tab PO DAILY ROS: Review of Systems Review of System REVIEW OF SYSTEMS: GENERAL: Denies weakness SKIN: No bruising, hair changes or rashes. EYES: No blurred, double or loss of vision. NOSE AND THROAT: Complains of her tongue swelling HEART: No history of palpitations, chest pain or shortness of breath on exertion. LUNGS: Denies cough, hemoptysis, wheezing or shortness of breath. GASTROINTESTINAL: Denies changes in appetite, nausea, vomiting, diarrhea or constipation. GENITOURINARY: No history of frequency, urgency, hesitancy or nocturia. NEUROLOGIC: Denies history of numbness, tingling, tremor or weakness. PSYCHIATRIC: No history of panic, anxiety or depression. ENDOCRINE: No history of heat or cold intolerance, polyuria or polydipsia. EXTREMITIES: Denies muscle weakness, joint pain, pain on walking or stiffness. Physical Exam: Vital Signs: Vital Signs Date Time Temp Pulse Resp B/P (MAP) Pulse Ox O2 Delivery O2 Flow Rate FiO2 08/26/19 11:59 98.4 90 18 141/70 (93) 92 98.4 08/26/19 09:40 Room Air Physcial Exam: GEN: No apparent distress. Alert and oriented HEENT: Has a swollen tongue EYES: Extraocular muscles are intact, pupil are equally round and reactive to light and accommodation MUSCULOSKELETAL: Well developed , well nourished, good range of motion ENDOCRINE: Ny thyromegaly was palpated LYMPHATICS: No cervical chain or axillary nodes were noted HEMATOPOIETIC: No bruising NECK: Supple, no JVD, no thyromegaly was noted LUNGS: Clear to auscultation in all lung [place] without rhonchi or wheezing HEART: RRR, S!, S2 present. Peripheral pulses intact, no obvious murmurs noted ABDOMEN: Soft, nontender. Positive bowel sounds, no organomegaly, normal bowel sounds EXTREMITIES: Without clubbing, cyanosis, or edema. Pedal pulses intact. Negative Homans sign NEUROLOGIC: Normal speech and tone. A&O x 3, moves all extremities, no obvious focal deficits PSYCHIATRIC: Normal affect, normal mood. Stable SKIN: No ulcerations or rashes, good skin turgor, no jaundice VASCULAR: Good capillary refill, neurovascular bundle appears to be intact Labs: Labs: Laboratory Tests Test 08/26/19 08:29 08/26/19 09:45 White Blood Count 9.2 x10^3/uL (4.0-11.0) Red Blood Count 4.73 x10^6/uL (3.50-5.40) Hemoglobin 13.9 g/dL (12.0-15.5) Hematocrit 41.6 % (36.0-47.0) Mean Corpuscular Volume 88 fL (79-100) Mean Corpuscular Hemoglobin 30 pg (25-35) Mean Corpuscular Hemoglobin Concent 34 g/dL (31-37) Red Cell Distribution Width 14.4 % (11.5-14.5) Platelet Count 217 x10^3/uL (140-400) Neutrophils (%) (Auto) 70 % (31-73) Lymphocytes (%) (Auto) 21 % (24-48) Monocytes (%) (Auto) 6 % (0-9) Eosinophils (%) (Auto) 2 % (0-3) Basophils (%) (Auto) 1 % (0-3) Neutrophils # (Auto) 6.4 x10^3/uL (1.8-7.7) Lymphocytes # (Auto) 2.0 x10^3/uL (1.0-4.8) Monocytes # (Auto) 0.5 x10^3/uL (0.0-1.1) Eosinophils # (Auto) 0.2 x10^3/uL (0.0-0.7) Basophils # (Auto) 0.1 x10^3/uL (0.0-0.2) Prothrombin Time 13.1 SEC (11.7-14.0) Prothromb Time International Ratio 1.0 (0.8-1.1) Activated Partial Thromboplast Time 32 SEC (24-38) Sodium Level 143 mmol/L (136-145) Potassium Level 4.1 mmol/L (3.5-5.1) Chloride Level 102 mmol/L (98-107) Carbon Dioxide Level 28 mmol/L (21-32) Anion Gap 13 (6-14) Blood Urea Nitrogen 14 mg/dL (7-20) Creatinine 0.8 mg/dL (0.6-1.0) Estimated GFR (Cockcroft-Gault) 84.6 BUN/Creatinine Ratio 18 (6-20) Glucose Level 93 mg/dL (70-99) Calcium Level 10.0 mg/dL (8.5-10.1) Magnesium Level 2.2 mg/dL (1.8-2.4) Total Bilirubin 0.4 mg/dL (0.2-1.0) Aspartate Amino Transf (AST/SGOT) 22 U/L (15-37) Alanine Aminotransferase (ALT/SGPT) 16 U/L (14-59) Alkaline Phosphatase 114 U/L (46-116) Total Protein 8.5 g/dL (6.4-8.2) Albumin 4.4 g/dL (3.4-5.0) Albumin/Globulin Ratio 1.1 (1.0-1.7) Urine Collection Type Unknown Urine Color Yellow Urine Clarity Clear Urine pH 6.5 Urine Specific [place] 1.010 Urine Protein Negative mg/dL (NEG-TRACE) Urine Glucose (UA) Negative mg/dL (NEG) Urine Ketones (Stick) Negative mg/dL (NEG) Urine Blood Negative (NEG) Urine Nitrite Negative (NEG) Urine Bilirubin Negative (NEG) Urine Urobilinogen Dipstick 0.2 mg/dL (0.2 mg/dL) Urine Leukocyte Esterase Small (NEG) Urine RBC 0 /HPF (0-2) Urine WBC 1-4 /HPF (0-4) Urine Squamous Epithelial Cells Mod /LPF Urine Bacteria Few /HPF (0-FEW) Urine Mucus Slight /LPF Laboratory Tests Test 08/26/19 08:29 08/26/19 09:45 White Blood Count 9.2 x10^3/uL (4.0-11.0) Red Blood Count 4.73 x10^6/uL (3.50-5.40) Hemoglobin 13.9 g/dL (12.0-15.5) Hematocrit 41.6 % (36.0-47.0) Mean Corpuscular Volume 88 fL (79-100) Mean Corpuscular Hemoglobin 30 pg (25-35) Mean Corpuscular Hemoglobin Concent 34 g/dL (31-37) Red Cell Distribution Width 14.4 % (11.5-14.5) Platelet Count 217 x10^3/uL (140-400) Neutrophils (%) (Auto) 70 % (31-73) Lymphocytes (%) (Auto) 21 % (24-48) Monocytes (%) (Auto) 6 % (0-9) Eosinophils (%) (Auto) 2 % (0-3) Basophils (%) (Auto) 1 % (0-3) Neutrophils # (Auto) 6.4 x10^3/uL (1.8-7.7) Lymphocytes # (Auto) 2.0 x10^3/uL (1.0-4.8) Monocytes # (Auto) 0.5 x10^3/uL (0.0-1.1) Eosinophils # (Auto) 0.2 x10^3/uL (0.0-0.7) Basophils # (Auto) 0.1 x10^3/uL (0.0-0.2) Prothrombin Time 13.1 SEC (11.7-14.0) Prothromb Time International Ratio 1.0 (0.8-1.1) Activated Partial Thromboplast Time 32 SEC (24-38) Sodium Level 143 mmol/L (136-145) Potassium Level 4.1 mmol/L (3.5-5.1) Chloride Level 102 mmol/L (98-107) Carbon Dioxide Level 28 mmol/L (21-32) Anion Gap 13 (6-14) Blood Urea Nitrogen 14 mg/dL (7-20) Creatinine 0.8 mg/dL (0.6-1.0) Estimated GFR (Cockcroft-Gault) 84.6 BUN/Creatinine Ratio 18 (6-20) Glucose Level 93 mg/dL (70-99) Calcium Level 10.0 mg/dL (8.5-10.1) Magnesium Level 2.2 mg/dL (1.8-2.4) Total Bilirubin 0.4 mg/dL (0.2-1.0) Aspartate Amino Transf (AST/SGOT) 22 U/L (15-37) Alanine Aminotransferase (ALT/SGPT) 16 U/L (14-59) Alkaline Phosphatase 114 U/L (46-116) Total Protein 8.5 g/dL (6.4-8.2) Albumin 4.4 g/dL (3.4-5.0) Albumin/Globulin Ratio 1.1 (1.0-1.7) Urine Collection Type Unknown Urine Color Yellow Urine Clarity Clear Urine pH 6.5 Urine Specific [place] 1.010 Urine Protein Negative mg/dL (NEG-TRACE) Urine Glucose (UA) Negative mg/dL (NEG) Urine Ketones (Stick) Negative mg/dL (NEG) Urine Blood Negative (NEG) Urine Nitrite Negative (NEG) Urine Bilirubin Negative (NEG) Urine Urobilinogen Dipstick 0.2 mg/dL (0.2 mg/dL) Urine Leukocyte Esterase Small (NEG) Urine RBC 0 /HPF (0-2) Urine WBC 1-4 /HPF (0-4) Urine Squamous Epithelial Cells Mod /LPF Urine Bacteria Few /HPF (0-FEW) Urine Mucus Slight /LPF Assessment/Plan Assessment/Plan Angioedema of uncertain etiology Plan IV steroids IV Benadryl IV Pepcid We'll continue IV fluids We'll consider resuming home meds but will await a day DVT prophylaxis Full code Trend labs PT OT When necessary O2 If her symptoms progress we will consider transfer to ICU but she looks pretty stable at this point GIULIANA GAVIN III DO Aug 26, 2019 13:43
[2019-08-26 15:00] VITALS: BP 115/61
[2019-08-26 19:40] VITALS: BP 137/68
[2019-08-26] MEDS ORDERED: FAMOTIDINE 20 MG TABLET. PO SCH (21:00)
[2019-08-26] MEDS ORDERED: amLODIPine BESYLATE 10 MG TABLET PO SCH (21:00)
[2019-08-26] MEDS: methylPREDNISolone SOD SUCC PF 40 MG/ML VIAL. IV SCH (22:03)
[2019-08-26] MEDS: diphenhydrAMINE 50 MG/ML VIAL IVP SCH (22:04)
[2019-08-26 23:45] VITALS: BP 123/58
[2019-08-27 03:15] VITALS: BP 135/70
[2019-08-27 07:00] VITALS: BP 123/85
[2019-08-27] MEDS ORDERED: METOPROLOL SUCC 24HR ER 50 MG TAB.ER.24H. PO SCH (09:00)
[2019-08-27] MEDS: diphenhydrAMINE 50 MG/ML VIAL IVP SCH (10:22)
[2019-08-27] MEDS: methylPREDNISolone SOD SUCC PF 40 MG/ML VIAL. IV SCH (10:23)
[2019-08-27 11:00] VITALS: BP 126/56
--- NOTE | 2019-08-27 11:40 | NUR ---
Pt escorted via wheelchair by Yobani SEE, to patient's car. Discharge and education given to her about eliminating allergies and an allergy diary. Following up with her PCP.
--- NOTE | 2019-08-29 11:36 | DS ---
DATE OF DISCHARGE: 08/27/2019 ADMISSION DIAGNOSIS: Angioedema. DISCHARGE DIAGNOSIS: Resolving angioedema. HOSPITAL COURSE: The patient is a pleasant 73-year-old female who presented with angioedema. She was admitted. We gave her steroids, Benadryl and Pepcid. Over the next 48 hours, she did better. We discharged to home with a Medrol Dosepak and [id number] Pepcid and Benadryl. DISPOSITION: Home. ACTIVITY: As tolerated. DIET: Low sodium. MEDICATIONS: Please see the MRAD. TOTAL TIME: 31 minutes. BENJAMÍNL Sukhdev GAVIN DO DR: THEE/milka JOB#: [id number] / [id number]
== END 2019-08-27 13:45 | disposition home or self-care (01) | DRG 916 ==
LOC: ER 07:59 → 6 SOUTH 09:15
PROVIDERS: ADMIT Internal Medicine; ATTEND Internal Medicine
DX: T78.3XXA Angioneurotic edema, initial encounter (principal); Z85.43 Personal history of malignant neoplasm of ovary; Z90.710 Acquired absence of both cervix and uterus; I10 Essential (primary) hypertension; F41.9 Anxiety disorder, unspecified; E78.00 Pure hypercholesterolemia, unspecified
CPT/HCPCS: 36415; 80053; 81001; 83735; 85025; 85610; 85730; 87086; 96374; 96375; J1100; J1200; J2920; J3490; 99285-25; G0378

== ENCOUNTER 2019-11-22 22:30 | Emergency (ER) | payer MEDICARE ==
[~2019-11-22] VITALS: Ht 154.9 cm; Wt 60.6 kg
[2019-11-22] MEDS ORDERED: PRED20TA PO (23:19)
--- NOTE | 2019-11-22 23:20 | PHYS DOC ---
Past Medical History Past Medical History: Hypertension, Other Additional Past Medical Histor: ANGIOEDEMA Past Surgical History: Hysterectomy Additional Past Surgical Histo: OVARIAN CA Smoking Status: Unknown if ever smoked Alcohol Use: None Drug Use: None Adult General Chief Complaint Chief Complaint: TONGUE SWELLING/INJURY HPI HPI 74-year-old female presents with sensation of tongue swelling which started at approximately 2200 this evening. Patient reports she thinks it is secondary to eating some salmon earlier this evening. Patient reports she does have a history of angioedema. Patient reports taking some Benadryl and Pepcid prior to arrival with some improvement. Review of Systems Review of Systems Constitutional: Denies fever or chills Eyes: Denies redness or eye pain HENT: Denies nasal congestion or sore throat; reports tongue swelling Respiratory: Denies cough or shortness of breath Cardiovascular: Denies chest pain or palpitations GI: Denies abdominal pain, nausea, or vomiting : Denies dysuria or hematuria Musculoskeletal: Denies back pain or joint pain Integument: Denies rash or skin lesions Neurologic: Denies headache, focal weakness or sensory changes Complete systems were reviewed and found to be within normal limits, except as documented in this note. Current Medications Current Medications Current Medications Medications (Trade) Dose Ordered Sig/Jeyson Start Time Stop Time Status Last Admin Dose Admin Dexamethasone Sodium Phosphate (Decadron) 10 mg 1X ONCE 11/22/19 23:45 11/22/19 23:46 DC 11/22/19 23:52 10 MG Allergies Allergies Allergies Coded Allergies Type Severity Reaction Last Updated Verified benazepril Allergy Severe ANGIOEDEMA 09/24/16 Yes lisinopril Allergy Severe ANGIOEDEMA 08/10/19 Yes Penicillins Allergy Intermediate 09/24/16 Yes Physical Exam Physical Exam Constitutional: Well developed, well nourished, no acute distress, non-toxic appearance HENT: Normocephalic, atraumatic, oropharynx moist, able to handle oral secretions, small edema noted to distal tip of tongue Eyes: Conjunctiva normal, no discharge Neck: Normal range of motion, no tenderness, supple Cardiovascular: Heart rate normal, regular rhythm Lungs & Thorax: Bilateral breath sounds clear to auscultation, no wheezing Skin: Warm, dry, no erythema, no rash Extremities: No tenderness, ROM intact, no edema Neurologic: Alert and oriented X 3, no focal deficits noted Psychologic: Affect normal, judgment normal Current Patient Data Vital Signs Vital Signs Date Time Temp Pulse Resp B/P (MAP) Pulse Ox O2 Delivery O2 Flow Rate FiO2 11/22/19 22:52 97.6 86 16 151/72 (98) 98 Room Air 97.6 EKG EKG [] Radiology/Procedures Radiology/Procedures [] Course & Med Decision Making Course & Med Decision Making Patient presents with tongue swelling which has improved after taking Benadryl and Pepcid. Patient does have history of angioedema. Patient reports she thinks she is allergic to fish she ate earlier. No airway compromise noted. Patient given IM dexamethasone. Patient stable for discharge with outpatient follow-up with PCP. Discussed findings and plan with patient, who acknowledges understanding and agreement. Dragon Disclaimer Dragon Disclaimer This electronic medical record was generated, in whole or in part, using a voice recognition dictation system. Departure Departure Impression: Primary Impression: Allergic reaction Additional Impression: Tongue swelling Disposition: HOME, SELF-CARE Condition: STABLE Referrals: YAZ SHEETS D.O. (PCP) Patient Instructions: Food Allergy, [id number] Additional Instructions: Continue to use over the counter Benadryl and your previously prescribed Pepcid as directed. Scripts Prednisone (PREDNISONE) 20 Mg Tablet 2 TAB PO DAILY, #8 TAB Start this prescription tomorrow, Saturday11/23/19 Prov: WILNER GERENE DO 11/22/19 Problem Qualifiers Primary Impression: Allergic reaction Encounter type: initial encounter Qualified Codes: T78.40XA - Allergy, unspecified, initial encounter WILNER GREENE DO Nov 22, 2019 23:20
[2019-11-22 23:25] VITALS: BP 90/59
[2019-11-22] MEDS ORDERED: DEXAMETHASONE SOD PHOS 20 MG/5 ML VIAL. IM ONE (23:45)
== END 2019-11-22 23:25 | disposition home or self-care (01) ==
LOC: ER 22:30
DX: T78.40XA Allergy, unspecified, initial encounter (principal); K14.8 Other diseases of tongue; I10 Essential (primary) hypertension; Z88.0 Allergy status to penicillin; Z88.8 Allergy status to other drugs, medicaments and biological substances
CPT/HCPCS: 96372; 99283; J1100

== ENCOUNTER → 2020-09-01 | Outpatient (CLI) | payer MEDICARE ==
[~2020-09-01] MED LIST changes: +AMLO-186 PO; +AMLO-187 PO; -AMLO10TA8 PO; -AMLO5TAB10 PO; +SERT-267 PO; -SERT50TA8 PO
--- NOTE | 2020-09-01 13:48 | RAD ---
EXAM: Chest, 2 views. HISTORY: Asthma. Cough. COMPARISON: None. FINDINGS: 2 views of the chest are obtained. There is no infiltrate, pleural effusion or pneumothorax . The heart is normal in size. IMPRESSION: No acute pulmonary finding. Electronically signed by: Laquita Rasheed MD (09/01/2020 1:45 PM) [id number]
--- NOTE | 2020-09-01 14:57 | RAD ---
EXAM: Bilateral digital screening mammogram with tomosynthesis. HISTORY: 74-year-old female presents for screening mammography. TECHNIQUE: Full-field digital craniocaudal and mediolateral oblique 2D and 3D tomosynthesis images of both breasts are obtained for evaluation. Computer aided detection was applied. COMPARISON: 06/15/2019, 06/13/2018 BREAST PARENCHYMAL DENSITY: Level B - Scattered fibroglandular densities. FINDINGS: There is no new suspicious asymmetric density, microcalcification or region of architectura l distortion. There is stable areas of nodularity and asymmetry within both breasts. There are a few benign calcifications. IMPRESSION: BI-RADS Category 2: Benign finding(s). RECOMMENDATION: Annual mammography is recommended. If your mammogram demonstrates that you have dense breast tissue, which could hide abnormalities, and if you have other risk factors for breast cancer that have been identified, you might benefit from s upplemental screening tests that may be suggested by your ordering physician. Dense breast tissue, i n and of itself, is a relatively common condition. This information is not provided to cause undue c oncern, but rather to raise your awareness and to promote discussion with your physician regarding th e presence of other risk factors, in addition to dense breast tissue. A report of your mammography re sults will be sent to you and your physician. You should contact your physician if you have any ques tions or concerns regarding this report. Mammography is a sensitive method for finding small breast cancers, but it does not detect them all a nd is not a substitute for careful clinical examination. A negative mammogram does not negate a clin ically suspicious finding and should not result in delay in biopsying a clinically suspicious abnorma lity. PQRS compliance statement - Patient information was entered into a reminder system with a target due date for the next mammogram. "Our facility is accredited by the [employer] Mammography [employer]." Electronically signed by: Laquita Rasheed MD (09/01/2020 2:55 PM) [id number]
== END ==
LOC: MAMMO 12:52
PROVIDERS: ATTEND Family Medicine
DX: Z12.31 Encounter for screening mammogram for malignant neoplasm of breast (principal); J45.998 Other asthma
CPT/HCPCS: 71046; 77063; 77067

== ENCOUNTER 2021-08-04 12:01 | Emergency (ER) | payer MEDICARE ==
[~2021-08-04] VITALS: Ht 165.1 cm; Wt 75.0 kg
[~2021-08-04 12:01] MED LIST changes: +DOCU-148 PO; -DOCU-153 PO; -DOXY100C2 PO; +DOXY100C3 PO
[2021-08-04 12:51] LABS: BASO % 1 % (0-3); EOS # 0.3 x10^3/uL (0.0-0.7); EOS % 3 % (0-3); HEMATOCRIT 42.8 % (36.0-47.0); LYMPH # 2.1 x10^3/uL (1.0-4.8); LYMPH % 22 % (24-48); MEAN CORPUSCULAR HEMOGLOBIN 29 pg (25-35); MEAN CORPUSCULAR HGB CONC 33 g/dL (31-37); MEAN CORPUSCULAR VOLUME 90 fL (79-100); MONO # 0.7 x10^3/uL (0.0-1.1); MONO % 8 % (0-9); NEUT # 6.4 x10^3/uL (1.8-7.7); NEUT % 67 % (31-73); PLATELET COUNT 235 x10^3/uL (140-400); RED BLOOD COUNT 4.78 x10^6/uL (3.50-5.40); RED CELL DISTRIBUTION WIDTH 14.5 % (11.5-14.5); WHITE BLOOD COUNT 9.5 x10^3/uL (4.0-11.0)
[2021-08-04 13:04] LABS: CALCIUM 9.9 mg/dL (8.5-10.1); CREATININE 0.8 mg/dL (0.6-1.0); GFR 84.2; POTASSIUM 3.8 mmol/L (3.5-5.1)
--- NOTE | 2021-08-04 13:04 | PHYS DOC ---
Past Medical History Past Medical History: High Cholesterol, Hypertension, Other Additional Past Medical Histor: ANGIOEDEMA (PAULO ROWE) Past Surgical History: No Surgical History Additional Past Surgical Histo: OVARIAN CA (PAULO ROWE) Smoking Status: Never Smoker Alcohol Use: None Drug Use: None (PAULO ROWE) General Adult EDM: Chief Complaint: MULTIPLE COMPLAINTS HPI: HPI: Patient is a 75 year old female with history of hypertension high cholesterol who presents with left-sided thoracic pain that began last night. She states her pain is mild at rest and worsens with movement. She states her pain is periscapular on her back and also affects her left chest wall. Patient denies recent exertion injury or other inciting events. She denies fever, chills, weakness, diaphoresis, rash, abdominal pain, NVD. Patient called her primary care provider, who suggested she come to the emergency department versus being evaluated in office. She has no other complaints at this time. (PAULO ROWE) Review of Systems: Review of Systems: Constitutional: Denies fever or chills. Eyes: Denies change in visual acuity. HENT: Denies nasal congestion or sore throat. Respiratory: See HPI Cardiovascular: See HPI GI: See HPI : Denies dysuria or hematuria. Musculoskeletal: See HPI Integument: Denies rash or other skin lesions. Neurologic: Denies headache, focal weakness or sensory changes. (PAULO ROWE) Heart Score: C/O Chest Pain: Yes HEART Score for Chest Pain: HEART Score for Chest Pain Response (Comments) Value History Slighlty/Non-Suspicious 0 ECG Normal 0 Age > 65 2 Risk Factors 1 or 2 Risk Factors 1 Troponin < Normal Limit 0 Total 3 Risk Factors: Risk Factors: HTN, HLD Risk Scores: Score 0 - 3: 2.5% MACE over next 6 weeks - Discharge Home Score 4 - 6: 20.3% MACE over next 6 weeks - Admit for Clinical Observation Score 7 - 10: 72.7% MACE over next 6 weeks - Early Invasive Strategies (PAULO ROWE) Allergies: Allergies: Allergies Coded Allergies Type Severity Reaction Last Updated Verified benazepril Allergy Severe ANGIOEDEMA 09/24/16 Yes lisinopril Allergy Severe ANGIOEDEMA 08/10/19 Yes Penicillins Allergy Intermediate 09/24/16 Yes (PAULO ROWE) Physical Exam: PE: Constitutional: Very pleasant, well developed, well nourished, no acute distress, non-toxic appearance. Neck: Normal range of motion, no tenderness, supple, no stridor, no JVD. Cardiovascular: Heart rate regular rhythm, no murmur. Lungs & Thorax: Bilateral breath sounds clear to auscultation. Chest wall tender on the left side, reproducible pain on palpation. Abdomen: Bowel sounds normal, soft, no tenderness, no masses, no pulsatile masses. Skin: Warm, dry, no erythema, no rash. Back: No step-offs, no midline tenderness, mild tenderness palpation parascapular on the left side. Neurologic: Alert and oriented x4, no focal deficits noted. (PAULO ROWE) Current Patient Data: Labs: Laboratory Tests Test 08/04/21 12:20 White Blood Count 9.5 x10^3/uL (4.0-11.0) Red Blood Count 4.78 x10^6/uL (3.50-5.40) Hemoglobin 14.0 g/dL (12.0-15.5) Hematocrit 42.8 % (36.0-47.0) Mean Corpuscular Volume 90 fL (79-100) Mean Corpuscular Hemoglobin 29 pg (25-35) Mean Corpuscular Hemoglobin Concent 33 g/dL (31-37) Red Cell Distribution Width 14.5 % (11.5-14.5) Platelet Count 235 x10^3/uL (140-400) Neutrophils (%) (Auto) 67 % (31-73) Lymphocytes (%) (Auto) 22 % (24-48) Monocytes (%) (Auto) 8 % (0-9) Eosinophils (%) (Auto) 3 % (0-3) Basophils (%) (Auto) 1 % (0-3) Neutrophils # (Auto) 6.4 x10^3/uL (1.8-7.7) Lymphocytes # (Auto) 2.1 x10^3/uL (1.0-4.8) Monocytes # (Auto) 0.7 x10^3/uL (0.0-1.1) Eosinophils # (Auto) 0.3 x10^3/uL (0.0-0.7) Basophils # (Auto) 0.0 x10^3/uL (0.0-0.2) Sodium Level 140 mmol/L (136-145) Potassium Level 3.8 mmol/L (3.5-5.1) Chloride Level 102 mmol/L (98-107) Carbon Dioxide Level 29 mmol/L (21-32) Anion Gap 9 (6-14) Blood Urea Nitrogen 8 mg/dL (7-20) Creatinine 0.8 mg/dL (0.6-1.0) Estimated GFR (Cockcroft-Gault) 84.2 BUN/Creatinine Ratio 10 (6-20) Glucose Level 89 mg/dL (70-99) Calcium Level 9.9 mg/dL (8.5-10.1) Total Bilirubin 0.3 mg/dL (0.2-1.0) Aspartate Amino Transf (AST/SGOT) 26 U/L (15-37) Alanine Aminotransferase (ALT/SGPT) 23 U/L (14-59) Alkaline Phosphatase 106 U/L (46-116) Troponin I High Sensitivity 7 ng/L (4-50) Total Protein 8.4 g/dL (6.4-8.2) Albumin 4.4 g/dL (3.4-5.0) Albumin/Globulin Ratio 1.1 (1.0-1.7) Lipase 94 U/L (73-393) Laboratory Tests 08/04/21 12:20 Vital Signs: Vital Signs Date Time Temp Pulse Resp B/P (MAP) Pulse Ox O2 Delivery O2 Flow Rate FiO2 08/04/21 14:03 84 16 129/87 (101) 98 Room Air 08/04/21 12:13 98.5 97 17 166/90 (115) 96 Room Air 98.5 (PAULO ROWE) EKG: EKG: EKG Interpreted by Dr. Hernandez at 1215: Regular rate and rhythm 95 bpm with no ectopic beats. QT 372 ms/QTc 471 ms. No STEMI. (PAULO ROWE) Radiology/Procedures: Radiology/Procedures: PROCEDURE: PORTABLE CHEST 1V Single view of the chest. 08/04/2021 1:16 PM Indication: Reason: Chest pain Comparison: Chest radiograph September 01, 2020 Findings: There is no focal consolidation. There is no pleural effusion or pneumothorax. The cardiomediastinal silhouette and pulmonary vasculature are within normal limits. No acute osseous abnormalities are seen. Impression: No evidence of acute cardiopulmonary process. Electronically signed by: Foster Andrade MD (08/04/2021 1:26 PM) [id number] (PAULO ROWE) Course & Med Decision Making: Course & Med Decision Making Pertinent Labs and Imaging studies reviewed. (See chart for details) Patient presents with left-sided thoracic pain that began last night. She called her primary care doctor for evaluation, who suggested she come to the emergency department for cardiac evaluation. Work-up today will include EKG, chest x-ray, troponin and other lab work. Work-up today is largely unremarkable and reassuring that her current symptoms are noncardiac in nature. Patient requests an additional dose of Tylenol, with which she will be provided. Patient will be discharged home with instruction to continue taking Tylenol as needed for pain according to label instructions. She should return to the em ergency department for worsening symptoms or onset of new symptoms. Advised her to follow-up with her primary care doctor regarding today's visit as well. Patient understands and is agreeable to discharge plan. (PAULO ROWE) Course & Med Decision Making I was the Attending physician on the above date of service of this patient. This patient was evaluated, examined, treated, and dispositioned from the emergency department by the mid-level practitioner. Although I was working at the time , no assistance was requested. Electronically signed, Jeri Hernandez DO (JERI HERNANDEZ DO) Shiv Disclaimer: Shiv Disclaimer: This electronic medical record was generated, in whole or in part, using a voice recognition dictation system. (PAULO ROWE) Departure Departure Impression: Primary Impression: Left-sided chest wall pain Additional Impressions: Hypertension Qualified Codes: I10 - Essential (primary) hypertension Normal ECG Disposition: HOME / SELF CARE / HOMELESS Condition: STABLE Referrals: YAZ SHEETS D.O. (PCP) Patient Instructions: Muscle Strain, [id number] Additional Instructions: As discussed, your work-up today is reassuring that your current symptoms are not likely related to your heart. You should continue taking Tylenol according to the label instructions for your discomfort. Additionally, you can use topical lidocaine patches once per day.please call your primary care provider to schedule a follow-up appointment regarding today's ER visit as well. You may return to the emergency department for worsening symptoms or development of any new ones. PAULO ROWE Aug 04, 2021 13:04 JERI HERNANDEZ DO Aug 08, 2021 07:08
[2021-08-04 13:10] LABS: ALBUMIN 4.4 g/dL (3.4-5.0); ALBUMIN/GLOBULIN RATIO 1.1 (1.0-1.7); TOTAL BILIRUBIN 0.3 mg/dL (0.2-1.0); TOTAL PROTEIN 8.4 g/dL (6.4-8.2)
--- NOTE | 2021-08-04 13:29 | RAD ---
Single view of the chest. 08/04/2021 1:16 PM Indication: Reason: Chest pain Comparison: Chest radiograph September 01, 2020 Findings: There is no focal consolidation. There is no pleural effusion or pneumothorax. The cardiome diastinal silhouette and pulmonary vasculature are within normal limits. No acute osseous abnormaliti es are seen. Impression: No evidence of acute cardiopulmonary process. Electronically signed by: Foster Andrade MD (08/04/2021 1:26 PM) [id number]
[2021-08-04] MEDS ORDERED: LIDOCAINE (700MG/PATCH) PATCH. ONE (13:57)
[2021-08-04] MEDS ORDERED: ACETAMINOPHEN 325 MG TABLET. PO ONE (14:00)
[2021-08-04] MEDS ORDERED: LIDOCAINE (700MG/PATCH) PATCH. TD ONE (14:00)
[2021-08-04 14:03] VITALS: BP 129/87
== END 2021-08-04 16:00 | disposition home or self-care (01) ==
LOC: ER 12:01
DX: R07.89 Other chest pain (principal); I10 Essential (primary) hypertension; M54.6 Pain in thoracic spine; E78.00 Pure hypercholesterolemia, unspecified; Z88.0 Allergy status to penicillin; Z88.6 Allergy status to analgesic agent; Z88.8 Allergy status to other drugs, medicaments and biological substances
CPT/HCPCS: 36415; 71045; 80053; 83690; 84484; 85025; 99284-25; 99285-25